=== PATIENT | male | born 1950 | race Caucasian/White ===

== ENCOUNTER → 2020-06-14 14:47 | Outpatient (BNVA) | payer MEDICARE, OTHER, SELFPAY | PROVIDERS: PCP Internal Medicine; Visit Provider Internal Medicine Cardiovascular Disease | DX: I25.10 Atherosclerotic heart disease of native coronary artery without angina pectoris (principal); I10 Essential (primary) hypertension; E78.5 Hyperlipidemia, unspecified | CPT/HCPCS: 99212 ==

== ENCOUNTER → 2021-06-16 12:55 | Outpatient (BNVA) | payer MEDICARE, OTHER, SELFPAY | PROVIDERS: PCP Internal Medicine; Visit Provider Internal Medicine Cardiovascular Disease | DX: I25.10 Atherosclerotic heart disease of native coronary artery without angina pectoris (principal); I10 Essential (primary) hypertension | CPT/HCPCS: 93005; 99212 ==

== ENCOUNTER → 2022-06-19 12:23 | Outpatient (BNVA) | payer MEDICARE, OTHER, SELFPAY | PROVIDERS: PCP Internal Medicine; Visit Provider Internal Medicine Cardiovascular Disease | DX: I25.10 Atherosclerotic heart disease of native coronary artery without angina pectoris (principal); I10 Essential (primary) hypertension | CPT/HCPCS: 93005; 99212 ==

== ENCOUNTER 2022-07-14 09:57 | Outpatient (REF) | payer MEDICARE, OTHER, SELFPAY ==
[2022-07-14 11:14] LABS: Cholesterol 158 mg/dL; HDL Cholesterol 57 mg/dL; LDL Cholesterol Calculated 82 mg/dl; Triglycerides 96 mg/dL
[2022-07-17 16:29] LABS: CRP High Sensitivity 0.9 mg/L
== END 2022-07-14 09:58 | disposition home or self-care (01) ==
LOC: HO.LAB 09:57
PROVIDERS: PCP Family Medicine; Visit Provider Internal Medicine Cardiovascular Disease
DX: E78.5 Hyperlipidemia, unspecified (principal); I25.10 Atherosclerotic heart disease of native coronary artery without angina pectoris
CPT/HCPCS: 36415; 80061; 86141

== ENCOUNTER 2023-06-19 12:16 | Outpatient (AMB) | payer MEDICARE, OTHER, SELFPAY ==
--- NOTE | 2023-06-19 12:35 | A.OFFVIS_ITS ---
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 Required: No Financial Secretary: Financial Secretary Present Accompanied by: Spouse Allergies Tetracyclines [TETRACYCLINES] Allergy (Intermediate, Unverified 01/08/20 17:25) BLISTERS pravastatin [PRAVASTATIN] Allergy (Unknown, Unverified 01/08/20 17:25) UNKNOWN tetracycline Allergy (Unknown, Verified 12/11/19 00:00) joint px Medication List - Last Reconciled 06/19/23 by Yannick Kline MD amlodipine 2.5 mg PO DAILY aspirin 81 mg PO DAILY atorvastatin 80 mg PO DAILY bupropion HCl 450 mg PO DAILY ezetimibe 10 mg PO DAILY mupirocin 2% topical nitroglycerin 0.4 mg sublingual Q5M PRN HPI HPI Comments History of Present Illness Details Perry comes for follow-up of his coronary artery disease. Maintain high level of activity. Denies any exertional chest pain or shortness of breath. Takes all his medications regularly. Last LDL at 64 mg/dL. No blood pressure issues. No heart failure symptoms. No prolonged palpitations irregular heartbeat PFSH Medical History Hyperlipidemia HTN (hypertension) CAD (coronary artery disease) Surgical History Hx of hernia repair Hx of CABG Hx of cardiac cath Family History Father No problems noted. Mother No problems noted. Review of Systems Const Denies chills, Denies fatigue, Denies fever(s), Denies frequent falls, Denies weakness, Denies weight gain and Denies weight loss ENT Denies dizziness Card Denies chest pain, Denies leg edema, Denies lightheadedness, Denies palpitations, Denies dyspnea, Denies dyspnea on exertion, Denies orthopnea and Denies other (loss of consciousness) Resp Denies cough, Denies dyspnea and Denies dyspnea on exertion GI Denies hematochezia and Denies change in stool character Musc Denies abnormal gait, Denies muscle weakness, Denies numbness, Denies radiating pain into limb and Denies tingling Neuro Denies abnormal gait, Denies dizziness, Denies frequent falls, Denies numbness, Denies tingling and Denies weakness Endo Denies fatigue and Denies palpitations Physical Exam Vital Signs: Last Vital Signs Pulse 91 06/19/23 12:36 BP 120/70 06/19/23 12:36 BMI result Body Mass Index 28.2 Const General: cooperative, comfortable, no acute distress, alert and awake Nutritional Appearance: overweight Orientation/consciousness: patient oriented x3 Limitations: no limitations Neck Neck: Yes no meningeal signs and Yes trachea midline Carotids: no bruits Chest Chest palpation & inspection: normal inspection of the chest and other (Well- healed sternotomy scar) Resp Effort & Inspection: normal respiratory effort Auscultation: clear to auscultation bilaterally Cardio Jugular venous distension: no JVD Palpation: normal PMI Rate: regular rate Rhythm: regular rhythm Heart sounds: S1 normal heart sound present and S2 normal heart sound present Skin General skin exam: no rashes or lesions noted Neuro General: patient oriented x3, no meningeal signs and no focal motor deficits Extrem General: Yes no clubbing, cyanosis or edema Office Procedures EKG Details: EKG shows normal sinus rhythm with normal EKG [id number], Complete Assessment & Plan Assessment & Plan (1) CAD (coronary artery disease): Code(s): I25.10 - Atherosclerotic heart disease of [place] coronary artery without angina pectoris Plan: Coronary artery disease status post three-vessel coronary artery bypass grafting for acute coronary syndrome. Currently symptom free. Doing well. Will check for venous graft patency at 5 year anniversary.Continue otherwise aggressive medical therapy. Continue low-dose aspirin therapy for life. Continue high- intensity statin therapy. LDL is well optimized encouraged to continue to participate in physical activity as tolerated. Advised to call me with any (2) HTN (hypertension): Code(s): I10 - Essential (primary) hypertension Plan: Hypertension which is currently well controlled on low-dose amlodipine therapy. Advised to monitor blood pressure at home maintain a log. Goal blood pressure less than 130/84. Low-salt diet was discussed. Advised to call me with any changes in his blood pressure readings. Continue maintain heart healthy lifestyle. Follow up in the clinic in 1 year's time, sooner p.r.n.. Thank you for allowing me to partake in his care Orders: Orders NM cardiolite stress test 10 Months I25.10 - Atherosclerotic heart disease of [place] coronary artery without angina pectoris, R07.9 - Chest pain, unspecified CA echo transthoracic complete 10 Months I25.10 - Atherosclerotic heart disease of [place] coronary artery without angina pectoris CA stress test 10 Months I25.10 - Atherosclerotic heart disease of [place] coronary artery without angina pectoris Coding Level of Care Code Est Pt Level 4 (11627) Diagnoses CAD (coronary artery disease) I25.10 HTN (hypertension) I10 CPT Codes EKG - CPT: 39986-Iyncmmkrztigzfodg, Complete ([id number])
[2023-06-19 12:36] VITALS: BP 120/70; PULSE 91; BMI 28.2
== END 2023-06-19 13:03 | disposition home or self-care (01) ==
PROVIDERS: Visit Provider Internal Medicine Cardiovascular Disease
DX: I25.10 Atherosclerotic heart disease of native coronary artery without angina pectoris (principal); I10 Essential (primary) hypertension
CPT/HCPCS: 93010; 99214

== ENCOUNTER → 2023-06-19 12:16 | Outpatient (BNVA) | payer MEDICARE, OTHER, SELFPAY | PROVIDERS: Visit Provider Internal Medicine Cardiovascular Disease | DX: I25.10 Atherosclerotic heart disease of native coronary artery without angina pectoris (principal); I10 Essential (primary) hypertension | CPT/HCPCS: 93005; 99212 ==

== ENCOUNTER → 2024-04-07 10:50 | Outpatient (REF) | payer MEDICARE, OTHER, SELFPAY ==
--- NOTE | 2024-04-07 10:56 | CA_ITS ---
Transthoracic Echocardiogram Patient (Last, First, Middle): Perry Castro N Gender: Male Date of : 1950 Age: 74 Procedure Date: 04/07/2024 Procedure Type: Transthoracic Echocardiogram Location: OP Height: 172.72 cm Weight: 86.18 kg BSA: 2.00 m2 Heart Rate: bpm BP: 116 / 66 mmHg Maxillofacial Prosthodontist: Referring MD: Yannick Kline MD Symptoms: I25.10 - Atherosclerotic heart disease of [place] coronary artery without... Study Quality: Fair/Definity ECG Rhythm: Sinus Conclusions: - The left ventricular systolic function is normal. The visually estimated ejection fraction is between 60-65%. - Possible mid inferolateral hypokinesis. - No obvious valvular pathology seen on this study. Findings Procedure Information Contrast agent, definity, is being given per protocol without apparent complications. Left Ventricle Normal left ventricular cavity size. The left ventricular systolic function is normal. The visually estimated ejection fraction is between 60-65%. There is paradoxical septal motion consistent with post-operative status. Diastolic function is normal for age. There is moderate septal asymmetric hypertrophy. Difficult to assess wall motion even with contrast use. Possible mid inferolateral hypokinesis. Right Ventricle Normal right ventricular cavity size and systolic function. Atria Both atria are normal in size. Aortic Valve There is a normal trileaflet aortic valve. There is no aortic valve stenosis. There is no aortic valve regurgitation. Mitral Valve The mitral valve appears normal. There is trace mitral valve regurgitation. There is no mitral valve stenosis. Pulmonic Valve The pulmonic valve is likely normal. Tricuspid Valve There is trace tricuspid valve regurgitation. Tricuspid regurgitation envelope is inadequate for calculation of right ventricular systolic pressure. Great Vessels The asc aorta is normal in size. Venous The inferior vena cava is normal in size and collapses greater than 50% with inspiration. Pericardium/Pleural There is no evidence of pericardial effusion. Prior Study Comparison No significant change compared to prior study dated: 01/21/2019. Grossly similar; but prior study quality limited and also non-contrast and hence difficult to compare. Recommendations, Care & Conclusions No obvious valvular pathology seen on this study. Measurements 2D Linear Measurements IVSd: 1.48 0.6-0.9/0.6-1.0 cm LVIDd: 3.33 3.9-5.3/4.2-5.9 cm LVIDd Index: 1.67 2.4-3.2/2.2-3.1 cm/m2 LVIDs: 1.96 2.0-3.6 cm LVPWd: 1.41 0.7-1.1 cm Ao Root: 2.60 2.1-3.5 cm LA Diam: 3.90 2.7-3.8/3.0-4.0 cm LAIDs Index: 1.95 1.5-2.3 cm/m2 LV Mass: 211.86 67-162/88-224 g LV Mass Index: 105.93 43-95/49-115 g/m2 LVOT Diam: 2.30 3.0+(-)1.3 cm 2D Systolic Function EF 4C: 66.80 >55% EF 2C: 67.90 >55% EF BiP: 69.80 >55% Mitral Valve MV Pk E: 0.49 MV PK A: 0.68 MV Decel Time: 115.00 E/A: 0.70 E'Lateral: 8.05 E'Medial: 5.22 E/E' Med: 9.40 E/E' Lat: 6.10 PHT: 34.00 MVA PHT: 6.47 Decel [place]: 4.30 Aortic Valve AoV Pk [place]: 0.83 AoV Mn [place]: 0.58 AoV VTI: 0.17 AoV Pk Grad: 3.00 Aov Mn Grad: 2.00 JUAN LUIS Cont.VTI: 3.52 LVOT LVOT Pk Nicanor: 0.69 LVOT Mn [place]: 0.48 LVOT VTI: 0.14 LVOT Pk Grad: 2.00 LVOT Mn Grad: 1.00 LVOT Diam: 2.30 LVOT Area: 4.15 Diastolic Function MV Pk E: 0.49 MV Pk A: 0.68 E/A: 0.70 E'Medial: 5.22 E/E' Med: 9.40 E' Laterial: 8.05 E/E' Lat: 6.10 Right Ventricle TAPSE (mm): 19.00 TVS' Nicanor: 10.00 Tricuspid Valve TR Pk Nicanor: 1.98 TR Pk Grad: 16.00 RA Press: 3.00 Great Vessels Aorta Ao Root-2D: 2.60 2.0-3.7 cm Ao Asc: 3.60 2.1-3.4 cm Pulmonary Valve PV Pk Nicanor: 1.35 Peak PV Grad: 7.00 Updated in Other Vendor System with Status of Final Odell Cooley MD electronically signed on 04/07/2024 12:43:49 PM with status of Final
== END ==
LOC: HO.CARD 10:50
PROVIDERS: PCP Family Medicine; Visit Provider Internal Medicine Cardiovascular Disease
DX: I25.10 Atherosclerotic heart disease of native coronary artery without angina pectoris (principal)
CPT/HCPCS: 93306; Q9957

== ENCOUNTER → 2024-04-07 10:56 | Outpatient (BNV) | payer MEDICARE, OTHER, SELFPAY | PROVIDERS: PCP Family Medicine; Visit Provider Internal Medicine | DX: I42.2 Other hypertrophic cardiomyopathy (principal); I25.10 Atherosclerotic heart disease of native coronary artery without angina pectoris | CPT/HCPCS: 93306 ==

== ENCOUNTER → 2024-04-11 09:46 | Outpatient (REF) | payer MEDICARE, OTHER, SELFPAY ==
--- NOTE | ~2024-04-11 | NM_ITS ---
EXERCISE MYOCARDIAL PERFUSION STUDY INDICATION: Coronary disease TECHNIQUE: The patient was brought in for an exercise perfusion study on 04/11/2024. Patient performed exercise as per Mikal protocol and was injected 30 mCi of sestamibi once target heart rate was achieved. Images were obtained using the SPECT gamma camera interlaced with the gating device. Images were obtained in supine position. Resting perfusion study was performed on 04/14/2024. Patient was administered 30 mCi of sestamibi intravenously at rest. Images were then obtained in supine position. Total DLP 143 mGy-cm. Images were processed with the software and compared side to side in short axis, horizontal long axis and vertical long axis views. FINDINGS: Raw aquisition reviewed. Arms by the patient's side. The stress perfusion study showed no significant perfusion defects. Both uncorrected well as CT attenuation corrected images were reviewed. The gated study shows normal LV systolic function with calculated LVEF of 58%. LV cavity is normal in size. The gated study shows normal wall thickening and contraction of segments. Resting study shows no significant perfusion defects. Gating at rest reveals normal wall motion with ejection fraction at 63%. The findings are consistent with no clearly reversible or fixed perfusion defects. NM/NM cardiolite stress test IMPRESSION: 1. Myocardial perfusion imaging study shows normal myocardial perfusion. 2. Gated LVEF is 58% during stress and 63% during rest. 3. Transient ischemic dilatation not present. EKG component of the test reported separately. Electronically signed by: Odell Cooley MD 04/15/2024 09:02 AM [facility]
--- NOTE | 2024-04-11 09:50 | CA_ITS ---
Acquisition Time: 2024-04-11 10:52:45 Total Exercise Time: 00:06:45 Test Indications: CAD, HTN Medications: SEE H Protocol: ELBA Max HR: 130 BPM 89% of Pred: 145 BPM Max BP: 194/060 mmHG Max Work Load: 8.1 METS Exercise Stress Test with exercise 6 min 45 secs of Elba Protocol, achieving 86% MPHR, without any anginal symptoms, with frequent PVCs, with normotensive response to exercise. With upsloping ST depression noted inferiorly, that returned to baseline slowly. Nuclear images pending. Test reviewed with Dr. Cooley. Referred By: Yannick Kline Overread By: ANURAG MERINO
== END ==
LOC: HO.CARD 09:46
PROVIDERS: Visit Provider Internal Medicine Cardiovascular Disease
DX: R07.9 Chest pain, unspecified (principal); I25.10 Atherosclerotic heart disease of native coronary artery without angina pectoris
CPT/HCPCS: 78452; 93017; A9500

== ENCOUNTER → 2024-04-11 09:50 | Outpatient (BNV) | payer MEDICARE, OTHER, SELFPAY | PROVIDERS: Visit Provider Nurse Practitioner Family | DX: I25.10 Atherosclerotic heart disease of native coronary artery without angina pectoris (principal) | CPT/HCPCS: 78452; 93016; 93018 ==

== ENCOUNTER 2024-07-28 12:46 | Outpatient (AMB) | payer MEDICARE, OTHER, SELFPAY ==
--- NOTE | 2024-07-28 13:09 | A.OFFVIS_ITS ---
Vital Signs 07/28/24 13:10 Height 5 ft 8 in Weight 185 lb 3.013 oz BMI 28.2 BP 120/72 Blood Pressure Location Lt brachial Position Sitting Pulse 89 Intake Visit Reasons: 1 yr f/up mibi./echo Intake Note: 1 year follow-up with ekg had mibi and echo c/o fatigue Abnormal Psychology Teacher Required: No Allergies Tetracyclines [TETRACYCLINES] Allergy (Intermediate, Unverified 01/08/20 17:25) BLISTERS pravastatin [PRAVASTATIN] Allergy (Unknown, Unverified 01/08/20 17:) UNKNOWN tetracycline Allergy (Unknown, Verified 12/11/19 00:00) joint px Medication List - Last Reconciled 07/28/24 by Yannick Kline MD amlodipine 2.5 mg PO DAILY aspirin 81 mg PO DAILY atorvastatin 80 mg PO DAILY bupropion HCl XL 450 mg PO DAILY ezetimibe 10 mg PO DAILY mupirocin 2% topical nitroglycerin 0.4 mg sublingual Q5M PRN HPI Comments Details: Perry comes for follow-up. Overall he has been doing well. He underwent a myocardial perfusion imaging in March which was within normal limits with normal LV systolic function on echocardiogram. He continues to exercise at his current pace and has no exertional chest pain or shortness of breath. Overall feels energetic although he said he has not been exercising much and has some balance issues. Denies any orthopnea, PND, leg edema. Denies any prolonged palpitation or syncope. Occasionally gets orthostatic lightheadedness when he gets up quickly. [facility] Medical History Hyperlipidemia HTN (hypertension) CAD (coronary artery disease) Surgical History Hx of hernia repair Hx of CABG Hx of cardiac cath Family History Father No problems noted. Mother No problems noted. Review of Systems Const Denies chills, Denies fatigue, Denies fever(s), Denies frequent falls, Denies weakness, Denies weight gain and Denies weight loss ENT Denies dizziness Card Denies chest pain, Denies leg edema, Denies lightheadedness, Denies palpita tions, Denies dyspnea, Denies dyspnea on exertion, Denies orthopnea and Denies other (loss of consciousness) Resp Denies cough, Denies dyspnea and Denies dyspnea on exertion GI Denies hematochezia and Denies change in stool character Musc Denies abnormal gait, Denies muscle weakness, Denies numbness, Denies radiating pain into limb and Denies tingling Neuro Denies abnormal gait, Denies dizziness, Denies frequent falls, Denies numbness, Denies tingling and Denies weakness Endo Denies fatigue and Denies palpitations Physical Exam Vital Signs: Last Vital Signs Pulse 89 07/28/24 13:10 BP 120/72 07/28/24 13:10 BMI result Body Mass Index 28.2 Const General: cooperative, comfortable, no acute distress, alert and awake Nutritional Appearance: overweight Orientation/consciousness: patient oriented x3 Limitations: no limitations Neck Neck: Yes no meningeal signs and Yes trachea midline Carotids: no bruits Chest Chest palpation & inspection: normal inspection of the chest and other (Well- healed sternotomy scar) Resp Effort & Inspection: normal respiratory effort Auscultation: clear to auscultation bilaterally Cardio Jugular venous distension: no JVD Palpation: normal PMI Rate: regular rate Rhythm: regular rhythm Heart sounds: S1 normal heart sound present and S2 normal heart sound present Skin General skin exam: no rashes or lesions noted Neuro General: patient oriented x3, no meningeal signs and no focal motor deficits Extrem General: Yes no clubbing, cyanosis or edema Office Procedures EKG Details: EKG shows normal sinus rhythm with normal EKG [id number], Complete Assessment & Plan Assessment & Plan (1) CAD (coronary artery disease): Code(s): I25.10 - Atherosclerotic heart disease of [place] coronary artery without angina pectoris Category: Medical Plan: Coronary artery disease status post surgical revascularization many years ago with recent myocardial perfusion imaging within normal limits. He was no concerning symptoms. Usually overall suggestive of good prognosis. Recommend to continue lifelong aspirin therapy. Continue high-intensity statin therapy along with ezetimibe therapy. Advise at least annual lipid check. Will obtain labs from your office. Continue aggressive blood pressure control. Importance of regular physical exercise off all forms was discussed with him. (2) HTN (hypertension): Code(s): I10 - Essential (primary) hypertension Category: Medical Plan: Hypertension which is currently well optimized on current low-dose amlodipine therapy. Does have some symptoms of orthostasis. Advised to maintain adequate hydration. Advise orthostatic precautions. Importance of good blood pressure control was discussed. Low-salt diet was discussed. Advised to monitor blood pressure at home maintain a log. Will follow up in the clinic in 1 year's time, sooner p.r.n.. Thank you for allowing me to partake in his care Medications: Refilled nitroglycerin do not exceed 3 doses per episode 0.4 mg sublingual Q5M PRN 25 tabs 1RF chest pain Coding Level of Care Code Est Pt Level 4 (33488) Complex EM visit Add On G2211 Diagnoses CAD (coronary artery disease) I25.10 HTN (hypertension) I10 CPT Codes EKG - CPT: 94592-[id number], Complete ([id number])
[2024-07-28 13:10] VITALS: BP 120/72; PULSE 89; BMI 28.2
--- OUTSIDE RECORDS SUMMARY | 2024-07-28 15:06 | XMS_ITS | Clinical Summary ---
Author Organization [facility] it Address [address] [place] [address] Care Team Providers Care Clinical Rn Name Role Phone Unavailable Primary Care Provider Unavailabl e Social History Tobacco Use Types Packs/Day Years Used Date Smoking Tobacco: Never Assessed Sex and Gender Information Value Date Recorded Sex Assigned at Not on file Legal Sex Male 2:05 AM EST Gender Identity Not on file Sexual Orientation Not on file Plan of Treatment Health Maintenance Due Date Last Done Comments DTaP,Tdap,and Td Vaccines (1 - Tdap) 1968 Pneumococcal Vaccine: 50+ Ye ars (1 of 1 - PCV) 1999 Zoster Vaccines (1 of 2) 1999 Abdominal Aortic Aneurysm (A AA) Screen 11/13/2023 Cholesterol Screening (Lipid Panel) 11/13/2023 Colorectal Cancer Screening: Colonoscopy 11/13/2023 Depression Screening 11/13/2023 Falls Risk Assessment 11/13/2023 Hepatitis C Screening 11/13/2023 Social Influencers of Health Screening 11/13/2023 COVID-19 Vaccine ( - 2023-2 5 season) 2023 RSV Immunization Adult Patie nts (1 - 1-dose 75+ series) 2024 Influenza Vaccine (Season Ended) 2024 HIB Vaccines Aged Out No longer eligi ble based on patient's age to complete this topic HPV Vaccines Aged Out No longer eligi ble based on patient's age to complete this topic Hepatitis A Vaccines Aged Out No long er eligible based on patient's age to complete this topic Hepatitis B Vaccines Aged Out No long er eligible based on patient's age to complete this topic IPV Vaccines Aged Out No longer eligi ble based on patient's age to complete this topic MMR Vaccines Aged Out No longer eligi ble based on patient's age to complete this topic Meningococcal ACWY Vaccine Aged Out N o longer eligible based on patient's age to complete this topic Meningococcal B Vaccine Aged Out No l onger eligible based on patient's age to complete this topic RSV Immunization Patients Un amelia 20 months Aged Out No longer eligible b ased on patient's age to complete this topic Varicella Vaccines Aged Out No longer eligible based on patient's age to complete this topic
--- OUTSIDE RECORDS SUMMARY | 2024-07-28 15:06 | XMS_ITS | Data Portability ---
Author Organization [facility], Main Office Address [address] [facility] [address] [place] [phone] Care Team Providers Care Rapid Extractor Operator Name Role Phone JAMES FINCH Solar Installation Crew Supervisor [phone] [facility] Intake Worker AARON REECE Professional Fee Coder TUCKER ANSARI Psychologist [phone] DOLORES SIDDIQUI Hand Surgeon BRIGITTE BLOOM Body Corporate Manager DARWIN MCCONNELL Neurosurgeon MOE DOMINGUEZ Primary Care Provider [phone] Assessment Encounter Date Assessment Date Assessment LastModified by Organization Details LastModified Time 04/14/2023 04/14/2023 This service was provided using telemedicine. Patient consented to telephone visit Patient was located in the [facility]. Provider was located in the office. No other persons participated in the telemedicine visit except for the patient unless otherwise indicated here. {{}} Total time of visit was 9 minutes. madhu Not available 04/14/2023 09:33:31 04/24/2023 04/24/2023 This service was provided using telemedicine. Patient consented to video & audio visit Patient was located in the [facility]. Provider was located in the office. No other persons participated in the telemedicine visit except for the patient unless otherwise indicated here. {{}} Total time of visit was 15 minutes. [email or web address] Not available 04/24/2023 12:06:42 12/31/2023 12/31/2023 Plan and Workup Physical exam unremarkable, he passed get up and go test. Laboratory Tests: Will hold any lab test given there is an inciting factor. Imaging: Will hold neuro imaging as there is inciting factor. Referrals: Not indicated at this time. Home Safety Evaluation: Arrange for a home safety evaluation to identify and mitigate fall risks in the patient's living environment. -Advised to hold Flexeril today, can 0.5 to 0.25 at bedtime only as needed. -Add lyrica as needed for pain prn, for AM and Lunch time. -Use otc lidocaine or biofreeze. -Advised to limit naproxen use and use only as needed. Can use tylenol per otc instruction. -Advised PT. -Ed precautions discussed. -RTC in 3 weeks for a follow. [email or web address] Not available 12/31/2023 09:35:18 Plan of Treatment Reminders Order Date Submit Date Provider Last Modified By Organization Details Last Modified Time Details Appointments FOLLOW UP 30MIN 2024 02:00P Moses Dominguez MD Not available Not available Not available Lab HbA1c (hemog lobin A1c), blood 2023 [facility], [address], [address], [place], [address], 02/27/2024 14:06:31 lipid panel, serum 2023 024 [facility] (Centralized Electronic Ordering - All Locations), Patient Can Go To The Location Of Their Choice, [id number] 02/27/2024 14:06:30 CBC w/ auto diff 2023 024 [facility], [address], [address], [place], [address], 02/27/2024 14:06:46 CMP, serum or plasma 2023 024 [facility] (Centralized Electronic Ordering - All Locations), Patient Can Go To The Location Of Their Choice, [id number] 02/27/2024 14:06:30 TSH, ultra- sensit eryn, serum 2023 024 [facility] (Centralized Electronic Ordering - All Locations), Patient Can Go To The Location Of Their Choice, [id number] 02/27/2024 14:06:31 magnes ium, serum or plasma 2023 024 [facility], [address], [address], [place], [place], [address], 02/27/2024 14:06:45 HbA1c (hemog lobin A1c), blood 2023 024 [facility], [address], [address], [place], [address], 05/16/2023 15:08:36 lipid panel, serum 2023 024 [facility], [address], [address], [place], [address], 05/16/2023 17:06:21 Referral physic al therap ist referr al - Please see for LBP 2023 024 [facility] Not available 01/24/2024 15:19:02 hand surgeo n referr al 2023 024 [email or web address] [facility], [address], [facility] [address], [place], [address], 01/29/2024 13:40:08 physic al therap ist referr al 2023 024 [facility], [address] [place], [address], 01/28/2024 09:22:49 Procedures None record ed. Surgeries None record ed. Imaging None record ed. Medication Orders pregab wes 75 mg capsul e 2023 024 [facility] #[id number], [address] [place] [address], [address], 02/27/2024 13:36:47 cyclob enzapr ine 10 mg tablet 2023 024 [facility] #0977, [address] [place], [address], 12/31/2023 09:07:03 naprox en 500 mg tablet ,delay ed releas e 2023 [email or web address] [facility]armacy #[id number], [address] [place] [address], [address], 02/27/2024 13:35:37 flutic asone propio chyna 50 mcg/ac tuatio n nasal spray, suspen kem 2023 024 [facility] #0957, [address] [place] [address], [address], 12/11/2023 09:57:39 mirtaz apine 7.5 mg tablet 2023 024 [facility]0957, [address] [place] [address], [address], 02/27/2024 13:36:29 Paxlov id 300 mg (150 mg x 2)-100 mg tablet s in a dose pack 2022 024 [facility] #0957, [address] [place] [address], [address], 04/24/2023 11:53:58 benzon atate 100 mg capsul e 2022 [email or web address] [facility] #0957, [address] [place] [address], [address], 04/24/2023 11:53:29 Patient TargetsNo targets recorded. Patient Instructions Encounter Date Encounter Id Patient Instructions Last Modified By Organization Details Last Modified Time 04/14/2023 [id number] 10 things to do when you have covid-19 [email or web address] Not available 04/14/2023 09:35:41 10 things to do when you have covid-19 [email or web address] Not available 04/14/2023 09:35:41 cough: care instructions madhu Not available 04/14/2023 09:35:41 12/11/2023 [id number] low back pain: exercises [email or web address] Not available 12/11/2023 10:07:55 getting back to normal after low back pain: care instructions [email or web address] Not available 12/11/2023 10:07:55 To call or return for worsening or concerns [email or web address] Not available 12/11/2023 09:58:13 02/27/2024 [id number] advance care planning: care instructions [email or web address] Not available 02/27/2024 14:06:25 well visit, over 65: care instructions ckokar Not available 02/27/2024 14:06:25 preventing falls: care instructions ckokar Not available 02/27/2024 14:06:25 medicare preventive services guide (male 74 rs and under) ckokar Not available 02/27/2024 14:06:25 high cholesterol: care instructions ckokar Not available 02/27/2024 14:06:25 Reason for Referral Physical Therapist Referral for At increased risk for falls Referring Physician: Moe Dominguez [facility], Encounter Date: 12/31/2023 Physical Therapist Referral for Lumbar radiculopathy Please see for LBP Referring Physician: Moe Dominguez [facility], Encounter Date: 12/31/2023 Hand Surgeon Referral for Tr igger finger of left hand Referring Physician: Moe Domniguez [facility], Encounter Date: 12/31/2023 Results Created Date Observation Date Name Description Value Unit Range Abnormal Flag Note LastModifiedBy Organization Detail LastModifiedTime 05/16/19 24 05/16/2023 HEMOG LOBIN A1C hemoglobin A1C 5.7 % (4.0-5 .6) high MONIT ORING : In known diabe tic patie nts, hemog lobin A1c targe ts shoul d be discu ssed with healt h care provi amelia. DIAGN OSTIC USE: The Ameri can Diabe bora Assoc iatio n (ADA) and the World Healt h Organ izati on (WHO) recom mend the use of HbA1c to diagn ose diabe bora using a thres hold of 6.5%. Patie nts who have an HbA1c betwe en 5.7% and 6.4% are consi dered at incre ased risk for devel oping diabe bora in the brandee ROSE ON: False ly low HbA1c resul ts may be obser silvio in patie nts with hemol ytic anemi a, homoz ygous forms of abnor mal hemog lobin (e.g. SS, CC, SC), pregn salty, recen t blood loss or hemog lobin F great er than 7%. Fruct osami ne may be used as an alter chyna test in these cases . REFER ENCE: ADA: Stand ards of Medic al Care in Diabe b[place] 2019, The Journ al of Clini jackie and Appli ed Resea rc and Educa tion Volum e 43, Suppl ement 1 Not Available [facility] (Centralized Electronic Ordering - All Locations) Patient Can Go To The Location Of Their Choice, 05/16/2023 15:08:36 05/16/1905/16/2023 LIPID PANEL cholesterol, total 145 mg/dL (<200) Not Available [facility] (Centralized Electronic Ordering - All Locations) Patient Can Go To The Location Of Their Choice, 05/16/2023 17:06:21 05/16/1905/16/2023 LIPID PANEL triglyceride 77 mg/dL (<150) Not Available [facility] (Centralized [facility] Ordering - All Locations) Patient Can Go To The Location Of Their Choice, 05/16/2023 17:06:21 05/16/1905/16/2023 LIPID PANEL HDL chol 66 mg/dL (>39) Not Available [facility] (Centralized Electronic Ordering - All Locations) Patient Can Go To The Location Of Their Choice, 05/16/2023 17:06:21 05/16/1905/16/2023 LIPID PANEL LDL cholesterol, calculated 64 mg/dL (0-130 ) Not Available [facility] (Centralized Electronic Ordering - All Locations) Patient Can Go To The Location Of Their Choice, 05/16/2023 17:06:21 05/16/1905/16/2023 LIPID PANEL non HDL cholesterol (calc) 79 mg/dL (<160) Not Available [facility] (Centralized Electronic Ordering - All Locations) Patient Can Go To The Location Of Their Choice, 05/16/2023 17:06:21 Result Notes None recorded. Problems Name Problem SNOMED Code Status Onset Date Resolution Date Notes Provider Name and Address Organization Details Recorded Time Major depressi ve disorder 831331427 Completed 01/22/2019 Removal Reason: DX changed Courtney poole [place] [facility] 9 14:20:32 Radiolog y result abnormal 372450657 Completed 201112/01/2013 RECORDED 08/29/19 12 1:31PM BY MARIANO SAINZ ON/ADDEN DUM Not Available [facility] 4 05:25:32 Adult health examinat ion Completed 201312/01/2013 RECORDED 05/19/19 14 8:57AM BY LAUREL JAY MA, ANNOTATI ON/ADDEN DUM Not Available [facility] 4 05:25:32 Bicipita l tenosyno vitis 11943322 Completed 201112/01/2013 RESOLVED DATE: 08/29/19 12; RECORDED 08/29/19 12 1:33PM BY MARIANO SAINZ ON/ADDEN DUM Not Available [facility] 4 05:25:32 Pneumoni a 704984742 Completed 201112/01/2013 RESOLVED DATE: 08/29/19 12; RECORDED 08/29/19 12 1:29PM BY MARIANO SAINZ ON/ADDEN DUM Not Available [facility] 4 05:25:32 Chest pain 27534651 Completed 201112/01/2013 RESOLVED DATE: 08/29/19 12; RECORDED 08/29/19 12 1:31PM BY MARIANO SAINZ ON/ADDEN DUM Not Available [facility] 4 05:25:32 Chronic sinusiti s 31353098 Completed 201212/01/2013 RECORDED 01/21/20 13 9:45AM BY LAUREL JAY MA, ANNOTATI ON/ADDEN DUM Not Available [facility] 4 05:25:32 Screenin g for malignan t neoplasm of colon Completed 201212/01/2013 RECORDED 06/17/19 13 2:49PM BY LAUREL JAY MA, GIANNAATI ON/ADDEN DUM Not Available [facility] 4 05:25:32 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 Completed 201212/01/2013 RECORDED 06/17/19 13 2:48PM BY LAUREL JAY MA, ANNOTATI ON/ADDEN DUM Not Available [facility] 4 05:25:32 Depressi ve disorder 85611969 Completed 201012/01/2013 RECORDED 10/12/19 11 10:46AM BY LAUREL JAY MA, MARIANO ON/ADDEN DUM Not Available [facility] 4 05:25:32 Elevated blood-pr essure reading without diagnosi s of hyperten kem 208882242 Completed 201312/01/2013 RECORDED 09/02/19 14 11:30AM BY LAUREL JAY MA, MARIANO ON/ADDEN DUM Not Available [facility] 4 05:25:32 Enthesop athy of knee 29171461 Completed 201112/01/2013 RESOLVED DATE: 08/29/19 12; RECORDED 08/29/19 12 1:29PM BY [place] MARIE, MARIANO ON/ADDEN DUM Not Available [facility] 4 05:25:32 Follow-u p encounte r Completed 201312/01/2013 RECORDED 09/02/19 14 11:42AM BY LAUREL JAY MA, ANNOTATI ON/ADDEN DUM Not Available [facility] 4 05:25:32 Malaise and fatigue 178494909 Completed 201212/01/2013 RECORDED 01/21/20 13 9:45AM BY LAUREL JAY MA, ANNOTCHALINO ON/ADDEN DUM Not Available [facility] 4 05:25:32 Hernia of abdomina l cavity 85655204 Completed 201112/01/2013 RESOLVED DATE: 08/29/19 12; RECORDED 02/27/20 12 11:51AM BY LAUREL JAY MA, ANNOTATI ON/ADDEN DUM Not Available [facility] 4 05:25:32 Immuniza tion refused Completed 05/10/2016 Jesús Fraga MD [address], [place], [address] , [facility] 7 11:18:23 Amnesia 02487539 Completed 201112/01/2013 RECORDED 02/27/20 12 11:51AM BY LAUREL JAY MA, ANNOTATI ON/ADDEN DUM Not Available [facility] 4 05:25:32 Mixed hyperlip idemia 495772673 Completed 201212/01/2013 RECORDED 05/20/19 13 1:32AM BY LAUREL JAY MA, ANNOTATI ON/ADDEN DUM Not Available [facility] 4 05:25:32 Active or passive immuniza tion Completed 201012/01/2013 RECORDED 04/11/20 11 3:21PM BY JESÚS FRAGA MD, OFFICE VISIT Not Available [facility] 4 05:25:32 Influenz a vaccine needed 62544893272 06 Completed 200912/01/2013 RECORDED 04/08/20 10 1:04PM BY LAUREL JAY MA, OFFICE VISIT Not Available [facility] 4 05:25:32 Administ ration of bacteria l and viral vaccine Completed 201012/01/2013 RECORDED 04/11/20 11 3:21PM BY JESÚS FRAGA MD, OFFICE VISIT Not Available [facility] 4 05:25:32 Abnormal findings on diagnost ic imaging of lung 088059819 Completed 201112/01/2013 RECORDED 08/29/19 12 1:32PM BY [place] MARIE, ANNOTATI ON/ADDEN DUM Not Available [facility] 4 05:25:32 Pain in limb 87899108 Completed 201112/01/2013 RESOLVED DATE: 08/29/19 12; RECORDED 08/29/19 12 1:30PM BY [place] MARIE, ANNOTATI ON/ADDEN DUM Not Available [facility] 4 05:25:32 Dizzines s and giddines s 554066392 Completed 201112/01/2013 STORY: POSITION AL VERTIGO, LIMITED TO EXTENSIO N AT THE NECK.; RECORDED 02/27/20 12 11:51AM BY LAUREL JAY MA, ANNOTATI ON/ADDEN DUM Not Available [facility] 4 05:25:33 Low back pain 393494133 Completed 11/04/2021 Moe Dominguez MD [address], [place], [address] , [facility] 2 13:17:31 Lumbar radiculo eliceo 792513416 Completed 11/21/2016 Moe Dominguez MD [address], [place], [address] , [facility] 4 13:56:37 Insomnia 553263231 Active Not Available [facility] 3 11:12:50 Spinal stenosis of lumbar region 99151685 Active Not Available [facility] 3 11:12:50 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 819354784 Completed 11/04/2021 Moe Dominguez MD [address], [address] , [facility] 2 13:15:28 Greater trochant edwige pain syndrome 8936962 Completed 11/04/2021 Moe Dominguez MD [address], [address] , [facility] 2 13:16:39 Fatigue 37677320 Completed 11/04/2021 Moe Dominguez MD [address], [address] , [facility] 2 13:16:46 Bursitis of shoulder 146451105 Completed 02/27/2024 Moe Dominguez MD [address], [place], [address] , [facility] 4 13:55:24 Actinic keratosi s 933002058 Active 2016 Not Available [facility] 3 11:12:50 Alcohol dependen ce 74157604 Completed 201805/03/2022 Moe Dominguez MD [address], [place], [address] , [facility] 3 07:35:33 Psychoph ysiologi c insomnia 392117562 Active 2018 Not Available [facility] 3 11:12:51 Single major depressi ve episode Completed 201801/02/2023 Moe Dominguez MD [address], [place], [address] , [facility] 3 11:45:27 Multi vessel coronary artery disease 255459395 Active now s/p CABG x3 - LAD, dx, OM Not Available [facility] 3 11:12:51 Left ventricu lar systolic dysfunct ion 886877631 Active 2018 Not Available [facility] 3 11:12:50 Tendinit is of hip 248830494 Completed 201811/04/2021 Moe Dominguez MD [address], [place], [address] , [facility] 2 13:17:05 History of myocardi al infarcti on 882189066 Active 2018 Not Available [facility] 3 11:12:51 Coronary artery bypass grafts x 3 Active 2018 LAD, diagonal , Om w/ greater saphenou s Not Available [facility] 3 11:12:50 Endoscop ic harvesti ng of saphenou s vein Active 2018 for CABG x 3 Not Available [facility] 3 11:12:51 Iron deficien cy anemia 65620163 Completed 201811/04/2021 Moe Dominguez MD [address] [facility] [address], [place], [address] , [facility] 2 13:16:53 Moderate recurren t major depressi on 24210195 Active 2019 Not Available [facility] 3 11:12:50 Pain of left hand 27603792812 9103 Completed 202011/04/2021 Moe Dominguez MD [address] [facility] [address], [place], [address] , [facility] 2 13:17:18 Primary erectile dysfunct ion 932791929 Active 2016 Not Available [facility] 3 11:12:51 Lumbar radiculo eliceo 870584182 Completed 202302/27/2024 Moe Dominguez MD [address] [facility] [address], [place], [address] , [facility] 4 13:56:37 Trigger finger of left hand 93764808289 317329 Completed 202302/27/2024 Moe Dominguez MD [address] [facility] [address], [place], [address] , [facility] 4 13:56:59 Radiolog y result abnormal 718339073 Completed 201111/04/2013 RECORDED 08/29/19 12 1:31PM BY MARIANO SAINZ ON/ADDEN DUM Not Available [facility] 4 14:09:59 Abnormal weight loss 139387356 Completed 05/10/2016 Jesús Fraga MD [address] [facility] [address], [place], [address] , [facility] 7 11:18:19 Disorder of joint of shoulder region 011658250 Completed 02/27/2024 Moe Dominguez MD [address] [facility] [address], [place], [address] , [facility] 4 13:55:30 Allergic rhinitis 31129294 Active Not Available [facility] 3 11:12:51 Adult health examinat ion Completed 201311/04/2013 RECORDED 05/19/19 14 8:57AM BY LAUREL JAY MA, ANNOTATI ON/ADDEN DUM Not Available [facility] 4 14:10:00 Bicipita l tenosyno vitis 74501070 Completed 201111/04/2013 RESOLVED DATE: 08/29/19 12; RECORDED 08/29/19 12 1:33PM BY MARIANO SAINZ ON/ADDEN DUM Not Available [facility] 4 14:10:00 Pneumoni a 894669247 Completed 201111/04/2013 RESOLVED DATE: 08/29/19 12; RECORDED 08/29/19 12 1:29PM BY MARIANO SAINZ ON/ADDEN DUM Not Available [facility] 4 14:10:00 Chest pain 89175861 Completed 201111/04/2013 RESOLVED DATE: 08/29/19 12; RECORDED 08/29/19 12 1:31PM BY GIANNA SAINZATI ON/ADDEN DUM Not Available [facility] 4 14:10:00 Chronic sinusiti s 77812920 Completed 201211/04/2013 RECORDED 01/21/20 13 9:45AM BY LAUREL JAY MA, GIANNAATI ON/ADDEN DUM Not Available [facility] 4 14:10:00 Screenin g for malignan t neoplasm of colon Completed 201211/04/2013 RECORDED 06/17/19 13 2:49PM BY LAUREL JAY MA, ANNOTATI ON/ADDEN DUM Not Available [facility] 4 14:10:00 Tietze's disease 66812742 Completed 201211/04/2013 RECORDED 06/17/19 13 2:48PM BY LAUREL JAY MA, ANNOTATI ON/ADDEN DUM Not Available [facility] 4 14:10:00 Cough 86004899 Completed 11/21/2016 [place], [place] - [facility] 7 10:56:10 Depressi ve disorder 87011758 Completed 201011/04/2013 RECORDED 10/12/19 11 10:46AM BY LAUREL JAY MA, ANNOTCHALINO ON/ADDEN DUM Not Available [facility] 4 14:10:00 Single major depressi ve episode Completed 11/17/2015 Moe Dominguez MD [address] [facility] [address], [facility] [place], [address] , [facility] 3 11:45:27 Elevated blood-pr essure reading without diagnosi s of hyperten kem 393360878 Completed 201311/04/2013 RECORDED 09/02/19 14 11:30AM BY LAUREL JAY MA, MARIANO ON/ADDEN DUM Not Available [facility] 4 14:10:01 Enthesop athy of knee 37104883 Completed 201111/04/2013 RESOLVED DATE: 08/29/19 12; RECORDED 08/29/19 12 1:29PM BY [place] MARIE, GIANNAATI ON/ADDEN DUM Not Available [facility] 4 14:10:01 Follow-u p encounte r Completed 201311/04/2013 RECORDED 09/02/19 14 11:42AM BY LAUREL JAY MA, MARIANO ON/ADDEN DUM Not Available [facility] 4 14:10:01 [facility] l hyperten kem 98452762 Active Not Available [facility] 3 11:12:51 Malaise and fatigue 744449249 Completed 201211/04/2013 RECORDED 01/21/20 13 9:45AM BY LAUREL JAY MA, ANNOTATI ON/ADDEN DUM Not Available [facility] 4 14:10:01 Hernia of abdomina l cavity 33634412 Completed 201111/04/2013 RESOLVED DATE: 08/29/19 12; RECORDED 02/27/20 12 11:51AM BY LAUREL JAY MA, ANNOTATI ON/ADDEN DUM Not Available [facility] 4 14:10:01 Hyperlip idemia 51375500 Active Not Available [facility] 3 11:12:51 Immuniza tion refused Completed 201311/05/2013 RECORDED 09/02/19 14 11:42AM BY LAUREL JAY MA, ANNOTATI ON/ADDEN DUM Jesús Fraga MD [address] [facility] [address], [place], [address] , [facility] 7 11:18:23 Amnesia 27246529 Completed 201111/04/2013 RECORDED 02/27/20 12 11:51AM BY LAUREL JAY MA, ANNOTATI ON/ADDEN DUM Not Available [facility] 4 14:10:01 Mixed hyperlip idemia 788767389 Completed 201211/04/2013 RECORDED 05/20/19 13 1:32AM BY LAUREL JAY MA, ANNOTATI ON/ADDEN DUM Not Available [facility] 4 14:10:01 Active or passive immuniza tion Completed 201011/04/2013 RECORDED 04/11/20 11 3:21PM BY JESÚS FRAGA MD, OFFICE VISIT Not Available [facility] 4 14:10:01 Influenz a vaccine needed 37178279142 06 Completed 200911/04/2013 RECORDED 04/08/20 10 1:04PM BY LAUREL JAY MA, OFFICE VISIT Not Available [facility] 4 14:10:01 Administ ration of bacteria l and viral vaccine Completed 201011/04/2013 RECORDED 04/11/20 11 3:21PM BY JESÚS FRAGA MD, OFFICE VISIT Not Available [facility] 4 14:10:02 Patient status finding 706233544 Completed 201311/05/2013 RECORDED 09/02/19 14 11:31AM BY LAUREL JAY MA, OFFICE VISIT [place], [facility] 6 13:02:42 Abnormal findings on diagnost ic imaging of lung 503776856 Completed 201111/04/2013 RECORDED 08/29/19 12 1:32PM BY MARIANO SAINZ ON/ADDEN DUM Not Available [facility] 4 14:10:02 Pain in limb 80492478 Completed 201111/04/2013 RESOLVED DATE: 08/29/19 12; RECORDED 08/29/19 12 1:30PM BY MARIANO SAINZ ON/ADDEN DUM Not Available [facility] 4 14:10:02 Enthesop athy of hip region 78934328 Completed 11/04/2021 Moe Dominguez MD [address], [facility] [place], [address] , [facility] 2 13:16:32 Dizzines s and giddines s 653185793 Completed 201111/04/2013 STORY: POSITION AL VERTIGO, LIMITED TO EXTENSIO N AT THE NECK.; RECORDED 02/27/20 12 11:51AM BY LAUREL JAY MA, ANNOTATI ON/ADDEN DUM Not Available [facility] 4 14:10:02 Problem Notes None recorded. Procedures Surgical History Date Name Laterality Status Provider Name and Address Organization Details Recorded Time 02/27/20 24 Advanced Care Planning completed Moe Dominguez MD [address], [place], [address], [facility] 01/22/2024 07:57:18 07/31/19 24 Colonoscopy completed Mona Luz [facility] 08/10/2023 08:07:26 01/03/20 23 Advanced Care Planning completed Moe Dominguez MD [address], [place], [address], [facility] 01/02/2023 08:23:41 01/06/20 22 Carpal tunnel surgery completed Betsy Moe [facility] 01/06/2022 15:07:21 11/05/19 22 Advanced Care Planning completed Moe Dominguez MD [address], [place], [address], [facility] 11/04/2021 13:34:01 01/21/20 19 Mini-Cog Test completed Laurel hallman MA [facility] 01/20/2019 13:04:41 12/03/19 19 coronary artery bypass grafts x 3 completed Lona Walker RN [facility] 12/10/2018 09:24:48 12/03/19 19 Endoscopic vein harvest completed Lona Walker RN [facility] 12/10/2018 09:25:11 09/28/19 19 catheterization completed Betsy Moe [facility] 10/01/2018 13:54:26 11/24/19 18 Mini-Cog Test completed Laurel hallman MA [facility] 11/23/2017 11:18:04 11/22/19 17 Fall Risk Assessment completed Laurel hallman MA [facility] 11/21/2016 11:10:23 11/22/19 17 Mini-Cog Test completed Laurel hallman MA [facility] 11/21/2016 11:12:27 11/17/19 16 Fall Risk Assessment completed Laurel hallman MA [facility] 01/11/2016 14:25:33 11/17/19 16 Mini-Cog Test completed Jesús Fraga MD [address], [place], [address], [facility] 11/17/2015 13:47:29 07/27/20 16 Advanced Care Planning completed Jesús Fraga MD [address], [place], [address], [facility] 11/17/2015 13:47:29 04/22/20 15 Joint Injection completed Jesús Fraga MD [address], [place], [address], [facility] 04/22/2015 11:16:35 11/07/19 15 Fall Risk Assessment completed Laurel Marquez-Favian hallman, [facility] 11/06/2014 09:10:28 11/07/19 15 Mini-Cog Test completed Laurel hallman, [facility] 11/06/2014 09:10:28 Knee arthroscopy/surger y completed Laurel hallman, [facility] 11/23/2017 11:02:07 Appendectomy completed Laurel hallman, [facility] 11/05/2013 10:57:38 Hernia Repair completed Laurel hallman, [facility] 11/05/2013 10:57:38 Cataract Surgery completed Chelo Maldonado MA [facility] 11/04/2021 12:59:46 Cataract Surgery completed Chelo Maldonado MA [facility] 11/04/2021 13:00:00 Imaging Results None recorded. Procedure Notes None recorded. Medical Equipment None Reported. Allergies Allergen ID Allergen Name Allergen Category Reaction Reaction Severity Criticality Documentation Date Start Date Code Code System Note Provider Name and Address Organization Details Recorded Time 61604 pravastat in medicatio n myalgias (muscle pain) Not available Not available 11/21/2016 02803 RxNorm Not Available [facility] 3 11:12:52 5248 Medicinal product containin g tetracycl ine structure and acting as antibacte rial agent (product) medicatio n rash Not available Not available 11/04/2013 98399 1004 SNOMED red, crack ed skin SIL Hannah [place] - [facility] 5 08:59:30 Medications Name Sig Start Date Stop Date Status Note LastModified by Organization Details LastModified Time cyclobenz aprine 10 mg tablet TAKE 1 TABLET BY MOUTH THREE TIMES A DAY DIRECTED FOR 10 DAYS 12/30 completed Not Available Not Available Not Available amoxicill in 500 mg capsule TAKE 1 TABLET THREE TIMES A DAY FOR 5 DAYS 09/08 completed Not Available Not Available Not Available furosemid e 40 mg tablet Take 1 tablet every day by oral route for 14 days. 12/24 completed Stop Dec 24, 2018 Not Available Not Available Not Available atorvasta tin 80 mg tablet TAKE 1 TABLET BY MOUTH EVERY DAY 2024 active Not Available Not Available Not Avai lable clonidine HCl 0.1 mg tablet as needed active Not Available Not Available No t Available acetamino phen 325 mg tablet Take 3 tablets every 6 hours by oral route as needed. 06/14 completed for post-op pain Not Available Not Available Not Available prednison e 10 mg tablet Take 1 tablet every day by oral route for 10 days. 12/11 completed Not Available Not Available Not Available Saline Mist 0.65 % nasal spray aerosol Take 1 spray every day by nasal route in the morning for 30 days. 02/26 completed Not Available Not Available Not Available trazodone 50 mg tablet Take 1 tablet every day by oral route for 30 days. 06/18 completed Not Available Not Available Not Available sildenafi l 50 mg tablet TAKE 1 TABLET BY MOUTH EVERY DAY NEEDED FOR 28 DAYS active Not Available Not Available No t Available atorvasta tin 10 mg tablet QD 09/27 completed RECORDED 09/28/19 10 1:52PM BY JESÚS FRAGA MD, OFFICE VISIT; Not Available Not Available Not Available aspirin 325 mg tablet Take 2 tablets every day by oral route as needed. 10/04 completed Approx 4 times per month Not Available Not Available Not Available amiodaron e 200 mg tablet Take 2 tablets twice a day by oral route for 3 days. 01/20 completed Not Available Not Available Not Available benzonata te 200 mg capsule 12/15 /2021 completed Not Available Not Available Not Available prednison e 20 mg tablet Take 2 tablets every day by oral route for 5 days. 12/11 completed Not Available Not Available Not Available fluoroura cil 5 % topical cream Apply 1 applicat ion twice a day by topical route as needed for 7 days. 11/05 completed For actinic keratosi s; Dr Aaron Reece (derm) Not Available Not Available Not Available metoprolo l succinate ER 100 mg tablet,ex tended release 24 hr TAKE 1 TABLET BY MOUTH EVERY DAY 06/14 completed Not Available Not Available Not Available simvastat in 10 mg tablet TAKE 1 TABLET BY MOUTH EVERY DAY 05/25 completed Not Available Not Available Not Available prednison e 5 mg tablet 11/05 completed Not Available Not Available Not Available Zithromax Z-Nahum 250 mg tablet QD 06/22 completed RECORDED 07/01/19 13 1:17PM BY JESÚS FRAGA MD, MEDICATI ON AUTO-BRITTNEY CTIVATIO N; Not Available Not Available Not Available triamcino lone acetonide 0.025 % lotion active Not Available Not Available Not Available Wellbutri n SR 150 mg tablet, 12 hr sustained -release BID 06/15 completed RECORDED 06/15/19 09 11:01AM BY SUSANNE TORRES AL SUMMARY; Not Available Not Available Not Available promethaz ine 6.25 mg-codein e 10 mg/5 mL syrup 04/06 completed Not Available Not Available Not Available meclizine 12.5 mg tablet Take 2 tablets 3 times a day by oral route as needed. 11/23 completed Not Available Not Available Not Available amlodipin e 2.5 mg tablet TAKE 1 TABLET BY MOUTH EVERY DAY active Not Available Not Available No t Available clopidogr el 75 mg tablet TAKE 1 TABLET BY MOUTH EVERY DAY DIRECTED 06/14 completed Not Available Not Available Not Available amlodipin e 5 mg tablet Take 1 tablet every day by oral route for 90 days. 12/11 completed Not Available Not Available Not Available aspirin 81 mg tablet,de layed release TAKE 1 TABLET BY MOUTH EVERY DAY active Not Available Not Available No t Available simvastat in 40 mg tablet Take one half tablet daily by mouth 11/23 completed Not Available Not Available Not Available ketorolac 0.5 % eye drops INSTILL 1 DROP INTO RIGHT EYE 4 TIMES A DAY 11/04 completed Not Available Not Available Not Available meloxicam 7.5 mg tablet Take 2 tablets every day by oral route for 30 days. 11/23 completed Not Available Not Available Not Available oxycodone -acetamin ophen 5 mg-325 mg tablet TAKE 1 TABLET BY MOUTH EVERY 8 HOURS NEEDED FOR PAIN 02/24 completed Not Available Not Available Not Available amoxicill in 875 mg tablet TAKE 1 TABLET BY MOUTH EVERY 12 HOURS FOR 7 DAYS 02/24 completed Not Available Not Available Not Available pravastat in 10 mg tablet DAILY active Not Available Not Available Not Available benzonata te 100 mg capsule TAKE 1 CAPSULE BY MOUTH THREE TIMES A DAY NEEDED FOR 5 DAYS 04/24 completed Not Available Not Available Not Available simvastat in 20 mg tablet TAKE 1 TABLET BY MOUTH EVERY DAY 10/04 completed Not Available Not Available Not Available Advair Diskus 250 mcg-50 mcg/dose powder for inhalatio n TWO TIMES DAILY 07/01 completed RECORDED 07/05/19 11 10:26AM BY IRMA ARENAS PA-C, MEDICATI ON AUTO-BRITTNEY CTIVATIO N;2 SAMPLES GIVEN Not Available Not Available Not Available orphenadr ine citrate ER 100 mg tablet,ex tended release Take 1 tablet twice a day by oral route for 5 days. active Not Available Not Available No t Available hydrochlo rothiazid e 12.5 mg capsule DAILY 2013 active RECORDED 09/13/19 14 4:08PM BY LAUREL JAY MA, ANNOTATI ON/ADDEN DUM; Not Available Not Available Not Available nitroglyc zeynep 0.4 mg sublingua l tablet TAKE 1 TABLET SUBLINGU ALLY EVERY 5 MINUTES NEEDED FOR CHEST PAIN,MAX 3 DOSES PER EPISODE active Not Available Not Available No t Available gabapenti n 300 mg capsule TAKE ONE CAPSULE BY MOUTH 3 TIMES A DAY DIRECTED 12/01 completed pt stopped med in August 2019 Not Available Not Available Not Available monteluka st 10 mg tablet Take 1 tablet every day by oral route at bedtime. 05/10 completed Not Available Not Available Not Available codeine 10 mg-guaife nesin 100 mg/5 mL oral liquid TAKE 10 ML EVERY DAY BY ORAL ROUTE AT BEDTIME FOR 7 DAYS. 02/24 completed Not Available Not Available Not Available pravastat in 20 mg tablet Take 1 tablet every day by oral route. 11/06 completed Not Available Not Available Not Available mupirocin 2 % topical ointment 11/01 completed Not Available Not Available Not Available mirtazapi ne 15 mg tablet TAKE 1 TABLET BY MOUTH EVERYDAY AT BEDTIME 01/20 completed Not Available Not Available Not Available methylpre dnisolone 4 mg tablets in a dose pack 6 DAYS TAPER. FOLLOW DIRECTIO NS ON PACKAGE DIRECTED 05/01 completed Not Available Not Available Not Available ketoconaz ole 2 % topical cream APPLY TWICE A DAY TO FEET FOR 2 WEEKS NEEDED FOR FOOT SCALE active NEEDED Not Available Not Available Not Available fluticaso ne propionat e 50 mcg/actua tion nasal spray,cyrus pension SPRAY 2 SPRAYS EVERY DAY INTO EACH NOSTRIL 2024 active Not Available Not Available Not Avai lable naproxen 500 mg tablet TAKE 1 TABLET BY MOUTH TWICE A DAY FOR 14 DAYS 11/01 completed Not Available Not Available Not Available amoxicill in 875 mg-potass ium clavulana te 125 mg tablet TAKE 1 TABLET BY MOUTH EVERY 12 HOURS FOR 10 DAYS 01/02 completed Not Available Not Available Not Available oxycodone 5 mg tablet Take 2 tablets every 6-8 hours by oral route. 12/11 completed Not Available Not Available Not Available escitalop enrique 10 mg tablet TAKE 1 TABLET BY MOUTH EVERY DAY active Not Available Not Available No t Available ezetimibe 10 mg tablet TAKE 1 TABLET BY MOUTH EVERY DAY active Not Available Not Available No t Available vardenafi l 5 mg tablet Take 1 tablet every day by oral route as directed for 12 days. 06/14 completed Not Available Not Available Not Available vardenafi l 10 mg tablet active Not Available Not Available Not Available bupropion HCl XL 300 mg 24 hr tablet, extended release TAKE 1 TABLET BY MOUTH DAILY DIRECTED FOR DEPRESSI ON 2024 active Not Available Not Available Not Avai lable bupropion HCl XL 150 mg 24 hr tablet, extended release TAKE 1 TABLET BY MOUTH EVERY DAY DIRECTED active Not Available Not Available No t Available tadalafil 5 mg tablet Take 1 tablet po daily 04/14 completed PRN Not Available Not Available Not Available tadalafil 20 mg tablet TAKE 1 TABLET BY MOUTH 30-60 MINUTES PRIOR TO SEX ON EMPTY STOMACH DIRECTED active Not Available Not Available No t Available mirtazapi ne 7.5 mg tablet TAKE 1 TABLET BY MOUTH EVERYDAY AT BEDTIME 02/26 completed Not Available Not Available Not Available hydrocodo ne 10 mg-acetam inophen 300 mg tablet Take 1 tablet twice a day by oral route as needed for 7 days. 09/23 completed Not Available Not Available Not Available pregabali n 75 mg capsule TAKE 1 CAPSULE BY MOUTH TWICE A DAY NEEDED FOR 30 DAYS 02/26 completed Not Available Not Available Not Available clonidine EVERY HOUR NEEDED FOR BP >150/90 09/01 completed RECORDED 09/02/19 14 11:36AM BY LAUREL JAY MA, OFFICE VISIT; Not Available Not Available Not Available Aspir-81 Take one by mouth daily 12/11 completed On plavix post-op Not Available Not Available Not Available Guiatuss EVERY 6 HOURS NEEDED FOR COUGH 06/20 completed RECORDED 06/25/19 11 9:19AM BY IRMA ARENAS PA-C, MEDICATI ON AUTO-BRITTNEY CTIVATIO N; Not Available Not Available Not Available multivita min DAILY active RECORDED 09/13/19 12 3:09PM BY JESÚS FRAGA MD, ANNOTATI ON/ADDEN DUM; Not Available Not Available Not Available blood pressure monitor DAILY MONITORI NG OF BP FOR HTN 04/03 completed RECORDED 04/11/20 11 2:08PM BY LAUREL JAY MA, MEDICATI ON AUTO-BRITTNEY CTIVATIO N; Not Available Not Available Not Available ProAir HFA 90 mcg/actua tion aerosol inhaler Inhale 2 puffs every 4 hours by inhalati on route as needed. 05/10 completed Not Available Not Available Not Available GaviLyte- G 236 gram-22.7 4 gram-6.74 gram-5.86 gram oral solution TAKE 4000 ML BY MOUTH DIRECTED 12/10 completed Not Available Not Available Not Available Metamucil Sugar-Charles e (aspartam e) 3.4 gram/5.8 gram oral powder 1/2 tsp every other day, mixed in water active Not Available Not Available No t Available melatonin 10 mg tablet Take 2 tablets as needed by oral route at bedtime. 03/06 completed Not Available Not Available Not Available Robitussi n Cough-Shawna st Sourav DM take prn 06/22 completed Not Available Not Available Not Available Flonase Sensimist 27.5 mcg/actua tion nasal spray,cyrus pension Take 2 sprays every day by nasal route at bedtime for 30 days. 09/08 completed changed to generic fluticas one Not Available Not Available Not Available EC-Naprox en 500 mg tablet,de layed release TAKE 1 TABLET BY MOUTH TWICE A DAY NEEDED 02/26 completed Not Available Not Available Not Available Paxlovid 300 mg (150 mg x 2)-100 mg tablets in a dose pack Take 3 tablets twice a day by oral route as directed for 5 days. 04/24 completed Not Available Not Available Not Available Clenpiq 10 mg-3.5 gram-12 gram/175 mL oral solution 04/14 completed Not Available Not Available Not Available Vitals Date Recorded Body height Provider Name an d Address Organization Details Last Updated DateTime 04/24/2023 172.72 cm Laurel Layc MA [facility] 04/24/2023 11:56:23 Date Recorded Body height Body mass index (BMI) Body weight Heart rate Oxygen saturation Oxygen saturation in Arterial blood by Pulse oximetry Body temperature Systolic blood pressure Diastolic blood pressure Provider Name and Address Organization Details Last Updated DateTime 172.72 cm 28.4 kg/m2 22002.7 7 g 91 /min 97 % 97 % 97.3 [degF] 120 mm[Hg] 66 mm[Hg] Javan michael MA [facility] 09:49:36 Date Recorded Body height Body mass index (BMI) Body weight Heart rate Oxygen saturation Oxygen saturation in Arterial blood by Pulse oximetry Body temperature Systolic blood pressure Diastolic blood pressure Provider Name and Address Organization Details Last Updated DateTime 4 172.72 cm 28 kg/m2 54047 g 93 /min 98 % 98 % 98 [degF] 119 mm[Hg] 76 mm[Hg] Javan michael MA [facility] 4 09:06:20 Date Recorded Body height Body mass index (BMI) Body weight Heart rate Oxygen saturation Oxygen saturation in Arterial blood by Pulse oximetry Body temperature Systolic blood pressure Diastolic blood pressure Provider Name and Address Organization Details Last Updated DateTime 4 172.72 cm 28.1 kg/m2 28440.5 9 g 100 /min 98 % 98 % 97.2 [degF] 148 mm[Hg] 74 mm[Hg] Catherine Craft MA [facility] 4 13:34:43 Date Recorded Systolic blood pressure Diastolic blood pressure Provider Name and Address Organization Details Last Updated DateTime 02/27/2024 126 mm[Hg] 64 mm[Hg] Moe Dominguez MD [address], [place], [address], [facility] 02/27/2024 14:31:47 Social History Question Answer Notes LastModified by Organizat ion Details LastModified Time Tobacco Smoking Status Never Smoker Laurel Lacy MA null, [facility] 11/05/2013 10:57:39 Do You Have An Advance Directive? Yes HCP At Home Information not available 06/01/2021 What Is Your Level Of Alcohol Consumption? Occasional Wine Information not available 11/06/2014 Is Blood Transfusion Acceptable In An Emergency? Yes Information not available 11/06/2014 What Is Your Level Of Caffeine Consumption? Moderate 2 Cups Of Coffee/mike resso Daily Information not available 11/05/2013 How Much Tobacco Do You Chew? None Information not available 11/06/2014 Are You Currently Employed? No Retired Information not available 11/06/2014 What Type Of Diet Are You Following? REGULAR Information not available 11/01/2020 Which Illicit Or Recreational Drugs Have You Used? None Information not available 11/06/2014 Do You Or Have You Ever Used E-cigarettes Or Vape? 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 With Others (Leatha) Information not available 06/01/2021 Do You Take Precautions To Prevent Distracted Driving? Yes Information not available 03/16/2015 How Often Do You Need To Have Someone Help You When You Read Instructions, Pamphlets, Or Other Written Material From Your Doctor Or Pharmacy? Never Information not available 03/16/2015 Have You Served In The ? No Information not available 05/10/2016 Have You Or Anyone In Your Household Had Any Of The Following Symptoms In The Last 14 Days: Sore Throat, Cough, Chills, Body Aches For Unknown Reasons, Shortness Of Breath For Unknown Reasons, Loss Of Smell, Loss Of Taste, Fever At Or Greater Than 100 Degrees Fahrenheit? No Information not available 11/01/2020 Are You Or Anyone In Your Household A Health Care Provider Or Emergency Responder? No Information not available 11/01/2020 To The Best Of Your Knowledge Have You Been In Close Proximity To Any Individual Who Tested Positive For COVID-19? No Information not available 11/01/2020 *AWV ONLY* Are You Presently Prescribed Opioid Medication By PCP Or Specialist? If YES -Provider Assess The Benefit For Other, Non-opioid Pain Therapies Instead, Even If The Patient Does Not Have OUD But Is Possibly At Risk. No Information not available 11/01/2020 Have You Recently Traveled To A COVID-19 High Risk Area Or Gathering In The Last 10 Days? No Information not available 11/01/2020 Marital Status Informatio n not available 06/01/2021 What Was The Date Of Your Most Recent Tobacco Screening? 02/27/2024 [email or web address] Information not available 02/27/2024 How Many Children Do You Have? 2 Information not available 11/06/2014 Do You Use Protection During Sex? No Information not available 03/16/2015 Seat Belts Used Routinely Yes Information not available 06/01/2021 Are You Sexually Active? Yes Information not available 03/16/2015 Smoke Alarm In Home Yes Information not available 06/01/2021 At What Age Did You Start Smoking Tobacco? 0 Information not available 11/06/2014 Are You Passively Exposed To Smoke? No Information not available 11/06/2014 Do You Or Have You Ever Used Smokeless Tobacco? Never Used Smokeless Tobacco Information not available 01/20/2019 How Much Tobacco Do You Smoke? No Information not available 11/06/2014 Do You Use Any Illicit Or Recreational Drugs? No Information not available 06/01/2021 Do You Use Sunscreen Routinely? Yes Information not available 11/06/2014 How Many Years Have You Smoked Tobacco? 0 Information not available 11/06/2014 Do You Or Have You Ever Used Any Other Forms Of Tobacco Or Nicotine? No Information not available 05/03/2022 Sex: Unknown Functional Status Question Answer Note LastModified by Organizat ion Details LastModified Time Are you able to walk? YESWOREST Information not available 06/01/2021 Are you able to care for yourself? Yes Information not available 11/06/2014 What is your exercise level? Moderate 1-2 x week at the gym Information not available 05/03/2022 Mental Status None recorded. Family History Relationship Description Onset Age of this Age Resolved Age Notes LastModified by Organization Details LastModified Time Mother Hypothyroidi sm phelmuth Not available 2015 13:44:59 Mother Low blood pressure phelmuth Not available 2015 13:44:59 Father Heart irregular phelmuth Not available 2015 13:44:59 Medical History Condition Response Hypertension Y Immunizations Vaccine Type Date Status Note Provider Name and Address Organization Details Recorded Time Influenza, high-dose, trivalent, PF 018 completed Mona uLz null, [facility] 03/09/2023 11:37:13 Tdap 018 completed Mona Luz null, [facility] 03/09/2023 11:37:13 Influenza, high-dose, trivalent, PF 018 completed Mona Luz null, [facility] 03/09/2023 11:37:13 Influenza, high-dose, trivalent, PF 018 completed Mona Luz null, [facility] 03/09/2023 11:37:13 Influenza, high-dose, trivalent, PF 020 completed Mona Luz null, [facility] 03/09/2023 11:37:13 COVID-19 vaccine, vector-nr, [id number], PF, 0.5 mL completed Mona Luz [facility] 03/09/2023 11:37:13 Influenza, high-dose, trivalent, PF 021 completed Mona Luz null, [facility] 03/09/2023 11:37:13 Influenza, adjuvanted, trivalent, PF 020 completed Mona Luz null, [facility] 03/09/2023 11:37:13 COVID-19, mRNA, LNP-S, PF, 100 mcg/0.5mL dose or 50 mcg/0.25mL dose 022 completed Mona Luz null, [facility] 03/09/2023 11:37:13 pneumococcal polysaccharide P[facility]23 [facility] 11:37:13 Pneumococcal conjugate PCV 13 016 completed Mona Luz null, [facility] 03/09/2023 11:37:13 Influenza, split virus, quadrivalent, PF 015 completed Mona Luz null, [facility] 03/09/2023 11:37:13 Influenza, high-dose, quadrivalent, PF 022 completed Mona Luz null, [facility] 03/09/2023 11:37:13 Influenza, high-dose, quadrivalent, PF 023 completed Mona Luz null, [facility] 03/09/2023 11:37:13 Pneumococcal conjugate PCV20, polysaccharide [id number] conjugate, adjuvant, PF 023 completed Irma Isabel MA null, [facility] 04/14/2023 09:12:51 Influenza, adjuvanted, trivalent, PF 024 completed Betsy poole, [facility] 02/11/2024 10:32:30 zoster live 017 cancelled patient objection Not Available [facility] 05/10/2019 02:21:33 zoster recombinant 018 cancelled patient objection Not Available [facility] 02/18/2021 06:19:20 Tdap 011 completed Mona poole, [facility] 03/09/2023 11:37:13 pneumococcal polysaccharide PPV23 011 completed Mona poole, [facility] 03/09/2023 11:37:13 Past Encounters Encounter ID Performer Location Encounter Start Date Encounter Closed Date Diagnosis/Indication Diagnosis SNOMED-CT Code Diagnosis ICD10 Code Diagnosis Note [id number] Jesús Fraga MD Main Office [address] [facility] [address] [facility] [place] [id number] 11/05/2013 10:24:40 11/05/2013 12:04:40 Essential hypertension 47399886 Hyperlipidemia [id number] Major depr essive disorder [id number] [facility] [address] [place] [address] 02/01/2007 00:00:00 [id number] [facility] [address] [facility] [address] [place] [address] 07/11/2007 00:00:00 [id number] auto[employer]ce [address] [facility],[address] [place] [address] 11/20/2007 00:00:00 [id number] [employer] erce [address] [facility] [address] [place] [address] 06/04/2006 00:00:00 [id number] autoEComm erce [address] [facility],[address] [place] [address] 06/01/2008 00:00:00 [id number] autoEComm erce [address] [facility],[address] [place] [address] 12/15/2008 00:00:00 [id number] autoEComm erce [address] [facility],[address] [place] [address] 01/04/2009 00:00:00 [id number] auto[employer] erce [address] [facility],[address] [place] [address] 09/21/2009 00:00:00 [id number] autoEComm erce [address] [facility],[address] [place] [address] 09/27/2009 00:00:00 [id number] [employer]ce [address] [facility],[address] [place] [address] 04/08/2010 00:00:00 [id number] autoEComm erce [address] [facility],[address] [place] [address] 06/09/2010 00:00:00 [id number] autoEComm erce [address] [facility],[address] [place] [address] 2 06/17/2010 00:00:00 [id number] autoEComm erce [address] [facility],[address] [place] [address] 2 10/11/2010 00:00:00 [id number] autoEComm erce [address] [facility],[address] [place] [address] 04/11/2011 00:00:00 [id number] autoEComm erce [address] [facility],[address] [place] [address] 2 09/13/2011 00:00:00 [id number] auto[employer] erce [address] [facility],[address] [place] [address] 02/27/2012 00:00:00 [id number] autoEComm erce [address] [facility],[address] [place] [address] 2 06/17/2012 00:00:00 [id number] autoEComm erce [address] [facility],[address] [place] [address] 2 01/20/2013 00:00:00 [id number] autoEComm erce [address] [facility],[address] [place] [address] 2 05/19/2013 00:00:00 [id number] auto[employer] erce [address] [facility],[address] [place] [address] 07/18/2013 00:00:00 [id number] auto[employer] erce [address] [facility],[address] [place] [address] 2 09/01/2013 00:00:00 [id number] Jesús Fraga MD Main Office [address] [place] [address] 01/26/2014 11:08:25 01/26/2014 12:16:34 Hyperlipidemia 66217692 Essential hypertension 55979950 [id number] Laurel mcconnell [place] Main Office [address] [place] [address] 08/14/2014 09:58:57 08/14/2014 10:49:29 Lumbar radiculopathy 787575970 3 months. gave choice of PT or seeing [facility]. He would like to start with PT and if not improving he will call to get referral to [facility]. caution drowsiness with cyclobenza harlan. he does not want to take NSAIDs [id number] Laurel mcconnell [place] Main Office [address] [place] [address] 11/06/2014 08:45:28 11/06/2014 10:02:26 Adult health examination 939425807 Cough 83568290 Essential hypertension 93670419 Hyperlipidemia 10000028 Insomnia 221796789 Varicella vaccination 00262144 Body mass index 25-29 - overweight 697636906 Spinal jordon nosis of lumbar region 52962750 Benign pro static hyperplasia with outflow obstruction 097356773 Mild BPH symptoms with 2x/night nocturia. Declines treatment. Single neto or depressive episode 929766000 [id number] Jesús Fraga MD Main Office [address] [place] [address] [place] [address] 03/02/2015 15:55:22 03/02/2015 16:08:02 Needs influenza immunization 803082548 Z23 [id number] Jesús Fraga MD Main Office [address] [place] [address] 03/16/2015 11:22:27 03/16/2015 12:16:57 Lumbar radiculopathy 446429587 M54.16 [id number] Jesús Fraga MD Main Office [address] [address] 04/22/2015 09:56:45 04/22/2015 11:17:31 Greater trochanteric pain syndrome 4252070 M70.61 [id number] Laurel mcconnell [place] Main Office [address] [address] 11/17/2015 12:57:55 11/17/2015 14:15:46 Adult health examination 406812804 Z00.00 Advance di rective discussed with patient 763045918 Z71.89 Body mass index 25-29 - overweight 234607218 Z68.29 Insomnia 590932108 G47.0 0 Major depr essive disorder 545996404 F32.9 Essential hypertension 35134344 I10 Administra tion of pneumococcal vaccine 10429790 Z23 Varicella vaccination 68 551493 Z23 Hyperlipidemia 95892289 E78.0 Bursitis of shoulder 239 819972 M75.50 [id number] Jesús Fraga MD Main Office [address] [place] [address] 01/11/2016 14:00:51 01/11/2016 15:30:16 Cough 44654138 R05 Allergic rhinitis 819113 04 J30.9 Wheezing symptom 9975734 08 R06.2 [id number] Jesús Fraga MD Main Office [address] [place] [address] [place] [address] 05/10/2016 10:22:26 05/10/2016 11:22:23 Hyperlipidemia 63434141 E78.5 Fatigue 53190952 R53.83 Allergic rhinitis 740490 04 J30.9 Major depr essive disorder 937826774 F32.9 Stable. continue bupropion Essential hypertension 97760824 I10 stable on low dose CCB Primary er ectile dysfunction 726720887 N52.9 Body mass index 25-29 - overweight 158828258 E66.3 [id number] Courtney Dudley Main Office [address] [address] [place] [address] 11/21/2016 10:52:38 11/21/2016 12:30:35 Adult health examination 752192975 Z00.00 Administra tion of pneumococcal vaccine 97572725 Z23 Varicella vaccination 68 244928 Z23 Major depr essive disorder 793837119 F32.9 Stable. continue bupropion Hyperlipidemia 62830050 E78.5 Reduced libido 8525231 R 68.82 Allergic rhinitis 771413 04 J30.9 Spinal jordon nosis of lumbar region 67898701 M48.06 Benign pro static hyperplasia with outflow obstruction 809076435 N40.1 Mild BPH symptoms with 2x/night nocturia. Declines treatment. Bursitis of shoulder 239 892046 M75.50 [id number] Jesús Fraga MD Main Office [address] [address] [place] [address] 05/25/2017 10:50:31 05/25/2017 12:16:32 Hyperlipidemia 39389527 E78.5 Single neto or depressive episode 813458011 F32.1 [id number] Ginny Carcamo Main Office [address] [address] [place] [address] 07/06/2017 15:05:55 07/06/2017 16:00:40 Direct inguinal hernia 03566902 K40.90 HPI and PE is most consistent with direct left inguinal hernia. will refer to surgery for eval and treatment . encouraged pt to stay hydrated to avoid further constipati on and avoid lifting, bending, straining with moving bowels. Pt directed to seek immediate medical attention in the even it goes from discomfort and becomes painful or becomes more protrudent . [id number] Jesús Fraga MD Main Office [address] [facility] [address] [place] [address] 11/23/2017 10:55:20 11/23/2017 12:30:02 Hepatitis C screening 707732528 Z11.59 Essential hypertension 99883180 I10 Active or passive immunization 979722968 Z23 Adult heal th examination 695973410 Z00.00 Hyperlipidemia 35490442 E78.5 Major depr essive disorder 286178876 F32.9 Stable. continue bupropion Fatigue 09064466 R53.83 Allergic rhinitis 963179 04 J30.9 Hypersomnia 91479559 G47 .10 [id number] Jesús Fraga MD Main Office [address] [place] [address] 05/06/2018 13:46:38 05/06/2018 15:36:46 Major depressive disorder 510596965 F32.9 Patient is recommende d to start psychother apy, reduce ETOH to no more than 1-2 drinks per day. Start medic. for sleep. F/u 4-6 weeks. Psychophys iologic insomnia 690321310 F51.04 will try trazodone at 50 mg daily , f/u 4-6 weeks. Alcohol dependence 70815 003 F10.20 Essential hypertension 02117920 I10 increase Amlodipine to 5 mg daily. F/u 4-6 weeks. [id number] Courtney Dudley Main Office [address] [place] [address] 06/18/2018 11:13:05 06/18/2018 12:29:57 Insomnia 976298532 G47.00 refuses to try Trazodone. Reports sleep is now improved. Major depr essive disorder 857316213 F32.9 Patient is recommende d to see psychiatri st and start therapy as discussed. Inform. given for [facility] in [place]. F/u with PCP as shceduled in June. . Essential hypertension 64843816 I10 Refuses to increase Amlodipine as was brooks loera [id number] Jesús Fraga MD Main Office [address] [place] [address] [place] [address] 06/24/2018 10:15:48 06/24/2018 11:07:56 Essential hypertension 40228153 I10 Single neto or depressive episode 500621104 F32.1 [id number] Arvin Bangura PA-C Main Office [address] [address] [place] [address] 08/21/2018 14:46:38 08/21/2018 15:30:44 Pain in right hip joint 5349761500 30730 M25.551 pt requested refill of vicodin - had leftover rx from 3 yrs ago - fully aware will take as last resort, not recreation ally will rx c meloxicam, could use prn tyl (not c vicodin) and will get updated xray and ortho eval Essential hypertension 38952765 I10 bp & cr stable, cont med as dir [id number] Gloria Bangura PA-C Main Office [address] [address] [place] [address] 09/23/2018 10:59:36 09/23/2018 12:14:52 Essential hypertension 80297052 I10 recommend to restart BP meds and take daily. Lumbago with sciatica 20 3544472 M54.41 Unclear if sciatic and sacroiliit is vs lumbar radiculiti s. Pt. has zay at [facility] in 1 week. Will start Prednisone taper as directed followed by restart of Meloxicam altern. with TYlenol for pain. LS spine xrays. [id number] Jesús Fraga MD Main Office [address] [address] [place] [address] 09/30/2018 14:00:24 09/30/2018 17:16:52 [id number] Jesús Fraga MD Main Office [address] [place] [address] [place] [address] 10/04/2018 12:59:55 10/04/2018 14:31:34 Multi vessel coronary artery disease 531728038 I25.10 Recent NSTEMI 09/2018. Seen at [facility]. Left ventr icular systolic dysfunction 949945794 I50.20 LVEF 40-45% on echo 09/2018 [id number] Jesús Fraga MD Main Office [address] [address] [place] [address] 10/16/2018 09:05:50 10/17/2018 13:12:09 [id number] Hermelinda Lima [place] Main Office [address] [place] [address] [place] [address] 10/21/2018 10:14:43 10/21/2018 11:36:46 Multi vessel coronary artery disease 085746560 I25.10 Recent NSTEMI 09/2018. Seen at [facility]. cont f/u c card - awaiting outpt. CABG Left ventr icular systolic dysfunction 778610602 I50.20 LVEF 40-45% on echo 09/2018 Benign par oxysmal positional vertigo 040993859 H81.10 better - cont f/u c vestibular therapist - next is tomorrow, use meclizine prn dc summary stated to f/u c Dr. Tong, but [facility] did not make referral - pt/ would like to go fwd c making ent referral, advised can cancel if feeling better Essential hypertension 49093799 I10 bp & cr stable, cont meds as dir Transition of care 43570 97534 105 Z75.8 [id number] Alka Ordonez Main Office [address] [address] [place] [address] 11/01/2018 09:44:09 11/01/2018 13:04:41 [id number] Jesús Fraga MD Main Office [address] [address] [place] [address] 11/05/2018 13:59:21 11/05/2018 15:11:30 Radicular syndrome of lower limbs 22622171 M54.10 Pain in hip, likely related to the back, as he has FROM of the hips and radicular pain. Will do STAT MRI of lumbar spine. Pt declines ED evaluation at this time. Will do alternatin g ibuprofen and percocet at home. low threshold to go to ED if pain not controlled or has bowel blader issue. He prefers to go home and his feels she can assist him safely. Call if any change in the interim. Rx renewed, Stop percocet and start oxycodone Spinal jordon nosis of lumbar region 97487400 M48.061 Will re evaluate with MRI History of myocardial infarction 162045771 I25.2 Pt is on medical management awaiting CABG, no cardiovasc ular sx at this time. [id number] Lona Walker RN Main Office [address] [facility] [address] [place] [address] 12/10/2018 09:28:15 12/10/2018 12:06:48 [id number] Bang Vidal Main Office [address] [address] [place] [address] 12/17/2018 13:23:28 12/17/2018 14:38:47 Multi vessel coronary artery disease 758798363 I25.10 s/p cabg x 3 - cont vna as dir, pending see card sx office tomorrow for suture removal/f/ u, pending see card next month on 01.14, pending begin cardiac rehab 01.02 no evidence of volume overload - no further post-op edema - advised pt okay to stop Fatigue 20218515 R53.83 likely d/t deconditio ej p surgery and / or anemia - see below - ? d/t mirt - see below Iron defic iency anemia 21001232 D50.9 Essential hypertension 16356296 I10 mildly orthostati c - see above - stop furosemide Insomnia 385519886 G47.0 0 better - rec cut mirt in 1/2 x 3 nights, then stop [id number] Laurel Marquez-Sil mcconnell [place] Main Office [address] [address] [place] [address] 01/09/2019 12:04:54 01/09/2019 12:16:47 [id number] Courtney Dudley Main Office [address] [address] [place] [address] 01/20/2019 12:37:42 01/20/2019 13:55:43 Adult health examination 946462959 Z00.00 History of myocardial infarction 050942536 I25.2 Essential hypertension 29587061 I10 Multi vess el coronary artery disease 681062829 I25.10 Recent NSTEMI 09/2018. Seen at [facility]. Iron defic iency anemia 43950383 D50.9 Body mass index 25-29 - overweight 632514785 E66.3 Z68.25 Moderate m ajor depression, single episode 44475267 F32.1 Stable. continue bupropion [id number] Jesús Fraga MD Main Office [address] [address] [place] [address] 11/24/2019 15:07:16 11/24/2019 16:41:00 Essential hypertension 54950961 I10 Fatigue 50069991 R53.83 Hyperlipidemia 37387091 E78.5 Multi vess el coronary artery disease 598853761 I25.10 Recent NSTEMI 09/2018. Seen at [facility]. Poor stream of urine 162 987825 R39.12 Primary er ectile dysfunction 530384948 N52.9 History of myocardial infarction 985098924 I25.2 Moderate r ecurrent major depression 33345465 F33.1 Left ventr icular systolic dysfunction 469890943 I50.20 LVEF 40-45% on echo 09/2018 [id number] Hermelinda Lima MA Main Office [address] [address] [place] [address] 06/14/2020 10:17:47 06/14/2020 11:32:13 Pain of right wrist 1512445329 94169 M25.531 Patient presented for wrist pain he notes that the wrist pain has gotten worse days will get x-ray of the wrist and also give him naproxen to be taken consecutiv sindy for 7 days, and as needed thus after. Advised to take with meals the risk of upset stomach and GI bleed was discussed, and cardiovasc ular risk of NSAID use also discussed patient is aware understand s the risk. Osteoarthr itis of wrist 926586584 M19.039 [id number] Jesús Fraga MD Main Office [address] [address] [place] [address] 11/01/2020 11:11:47 11/01/2020 12:33:49 Adult health examination 534234889 Z00.00 Essential hypertension 31297896 I10 Pain of left hand 068903 5505 95525 M79.642 Fatigue 49896711 R53.83 Hyperlipidemia 69488423 E78.5 Multi vess el coronary artery disease 032658856 I25.10 NSTEMI 09/2018 and s/p CABG History of myocardial infarction 111255568 I25.2 Moderate r ecurrent major depression 08146729 F33.1 Greater tr ochanteric pain syndrome 5089852 M70.61 Hypersomnia 70702696 G47 .10 [id number] Courtney Dudley Main Office [address] [facility] [address] [facility] [place] [address] 04/06/2021 10:54:16 04/06/2021 11:59:39 Left ventricular systolic dysfunction 160339842 I50.20 follows cardiology yearly. Essential hypertension 98033045 I10 Low sodium diet discussedC ounseled on medication adherence, cw current regimen as BP controlled .Counseled on diet/exerc ise Exposure t o viral disease 7297782912 02998 Z03.818 Will test for covid, give 1 dose J&J and has sx that can be due to virus. Upper resp iratory infection 55169604 J06.9 Throat Lozenges,s alt water gargle,sean quate hydration enforced,s simeon sprays,hum idifier use enforced.t demond sent for cough, and advised honey.Flu test done, covid test ordered.As Perry is high risk advise if difficulty breathing high fever then go to hospital. Alcohol dependence 06305 003 F10.20 Was under a lot of stress with mother notes he does not have an issue with etoh. He told me he saw my collegue at one visit and was talking about his stress stating she's going to drive me to drink But he denies excess etoh inake as the words used was just an expression .CAGE Score 0In a week drinks 7 drinks in week.Never more than 6 drinks one setting.Se e AUDIT C screening. Counseling 661520729 Z71 .9 Referral for counseling with Pedro / MELISA Marmolejo. Please provide patient with contact info to schedule their appointmen malini Shea# email: [email or web address] Moderate r ecurrent major depression 58314011 F33.1 No SI ideation, referral to [facility] provided. [id number] Moe Dominguez MD Main Office [address] [facility] [address] [place] [address] 06/01/2021 12:55:21 06/01/2021 13:44:11 Alcohol dependence 04397706 F10.20 Was under a lot of stress with mother notes he does not have an issue with etoh. He told me he saw my collegue at one visit and was talking about his stress stating she's going to drive me to drink But he denies excess etoh inake as the words used was just an expression .CAGE Score 0In a week drinks 7 drinks in week.Never more than 6 drinks one setting.Se e AUDIT C screening. Moderate r ecurrent major depression 65786295 F33.1 No SI ideation, Had some visit for [facility]. Needs new therapist. Left ventr icular systolic dysfunction 316422230 I50.20 follows cardiology yearly.Nex t apt Jun 16. At [facility] ed risk for falls 559631181 Z91.81 No gait abnormalit y on exam, has hx of BPPV, No tremors on exam.Has not falling to physically hurt himself but is unsteady.W ill refer to PT for fall prevention . Primary er ectile dysfunction 764954149 N52.9 Risk discussed with regards to viagra and CAD. Impingemen t syndrome of left shoulder region 5482978679 91134 M75.42 Suspected shoulder impingemen t. Offered Analgesic with PO steroid but Perry wants to hold and try therapy.Wi ll get Xr to ensure no instabilit y.Conserva tive therapy discussed. [id number] Moe Dominguez MD Main Office [address] [place] [address] 06/22/2021 15:08:38 06/22/2021 16:31:00 Pre-surgery evaluation 615533734 Z01.818 1. Pre-Surgic al Evaluation /Surgical Clearance for right cataracts surgery scheduled for 06/29/21 under [facility].-- Clinical cardiac predictor( s): hypertensi on, CAD status post CABG-- Surgical risk level: Low-- Functional Status: EXCELLENT- - Revised Cardiac Risk Index (RCRI) for Pre-Operat eryn Risk: 1-- READ Score: 0.1 % Risk of myocardial infarction or cardiac arrest, intraopera tively or up to 30 days post-op-- Vitals and previous labs reviewed-- Imaging: Not indicated- - EKG: Done at cardiology office 06/16/21-- Labs ordered per ophthalmol ogy recs.-- Informed patient NPO at midnight-- Advised to avoid NSAIDS however given medical history of coronary artery disease with CABG I recommend the patient to continue with aspirin as benefits outweigh the risk. I advised him to check with his ophthalmol ogist if this will be an issue. Given the low risk nature of the procedure via laser surgery I doubt it would be a problem.-- Plan of care discussed with patient.-- Medical clearance: Stable to proceed for procedure. Patient is at low risk for cardiopulm onary complicati ons with planned procedure based on comorbidit ies, good exertional tolerance and overall procedure risk. Cataract 823030159 H26.9 [id number] Moe Dominguez MD Main Office [address] [facility] [address] [place] [address] 11/04/2021 12:48:21 11/04/2021 13:43:46 Adult health examination 797147226 Z00.00 Patient was counseled on healthy diet, exercise and nutrition due to Body mass index is 28.8 kg/m? ? ?. Last PSADate: 10/28/20Resu lt: 1.4Plan: past age for screening, no fhx, asymptomat ic. Last Colonoscop y:Date: 04/10/12Re sult: wnlPlan: Per GI repeat 10yrs pt, reminded. Vaccines:T dAP: 11/03/17Zos ter Rec:PCV13: 11/17/15PPS V23: 04/11/11, 11/21/16Infl uenza: 03/23/21Cov id: 08/01/20, 05/12/21 Routine labs reviewed Immunizati on status reviewed. Will screen based on risk factors. Regular dental and ophtho care advised as well as seat belt and sunscreen use. Distracted driving discussed. Medication reconciled . Advance directives discussed. Varicella vaccination 68 926574 Z23 Screening for malignant neoplasm of colon 943420783 Z12.11 Advance di rective discussed with patient 530485210 Z71.89 MOLST discussed. [id number] Moe Dominguez MD Main Office [address] [facility] [address] [place] [address] 02/24/2022 14:09:01 02/24/2022 14:51:19 Bursitis of shoulder 586202437 M75.50 Impingemen t syndrome of right shoulder region 4629254926 50997 M75.41 [id number] Moe Dominguez MD Main Office [address] [facility] [address] [place] [address] 05/03/2022 10:45:57 05/03/2022 11:42:09 Essential hypertension 56909664 I10 Low sodium diet discussedC ounseled on medication adherence, cw current regimen as BP controlled .Counseled on diet/exerc ise Left ventr icular systolic dysfunction 894996609 I50.20 follows cardiology yearly. Is seeing counseling . Moderate r ecurrent major depression 60810821 F33.1 No SI Ideation Multi vess el coronary artery disease 902403386 I25.10 stable and doing well. [id number] Alka Ordonez Main Office [address] [facility] [address] [place] [address] 09/08/2022 11:22:58 09/08/2022 12:50:13 Persistent cough 108328739 R05.3 possible pneumonia vs bronchitis . Will do cxr now and call in augmentin to start empiricall y. Rest, hydration is important to sip on fluids, call if not improving ED if any acute changes Vasovagal symptom 225971 009 R55 Pt came around within 10 minutes, able to drink fluids, walk to car, no vomiting, not dizzy on discharge. Called later and he was feeling ok Community acquired pneumonia 844551033 J18.9 Pt with hx CAD but no sx related to this today. No acute sx of HF, no leg edema but feeling fatigued. Lab results and xray show no CHF, bronchitis /pneumonia likely. Will start treatment now. [id number] Courtney Dudley Main Office [address] [facility] [address] [place] [address] 01/02/2023 11:07:22 01/02/2023 12:20:44 Adult health examination 579514915 Z00.00 Patient was counseled on healthy diet, exercise and nutrition due to Body mass index is 28.8 kg/m? ? ?. Last PSADate: 10/28/20Resu lt: 1.4Plan: past age for screening, no fhx, asymptomat ic. Last Colonoscop y:Date: 04/10/12Re sult: wnlPlan: Per GI repeat 10yrs pt, reminded he is due and needs to schedule again. Vaccines:T dAP: 11/03/17Zos ter Rec: declined understand s risk.PCV20 : script [id number] : 11/17/15PPS V23: 04/11/11, 11/21/16Infl uenza: yearly flu shot encouraged .Covid: 08/01/20, 05/12/21, encouraged to complete series. Routine labs reviewed Immunizati on status reviewed. Will screen based on risk factors. Regular dental and ophtho care advised as well as seat belt and sunscreen use. Distracted driving discussed. Medication reconciled . Advance directives discussed. Screening for malignant neoplasm of colon 348061999 Z12.11 Advance di rective discussed with patient 650255216 Z71.89 MOLST discussed. Administra tion of pneumococcal vaccine 02477048 Z23 Fatigue 78197112 R53.83 Z00.00 Hyperlipidemia 82597864 E78.5 Z00.00 Prediabetes 719649161 R7 3.03 Essential hypertension 65158381 I10 Low sodium diet discussedC ounseled on medication adherence, cw current regimen as BP controlled .Counseled on diet/exerc ise Costal chondritis 848124 04 M94.0 pain on palpation. Declined analgesic. Varicella vaccination 68 192132 Z23 [id number] Moe Dominguez MD Main Office [address] [facility] [address] [facility] [place] [address] 03/06/2023 15:39:35 03/07/2023 09:04:34 Insomnia 252594996 G47.00 Melatonin 15mg and gabpentin 300 did not work well for him.Will try remeron to see if it aids in sleep.Will monitor lipid and a1c after ~6 weeks on medicaiton , side affects discussed. Moderate r ecurrent major depression 77578976 F33.1 No SI Ideation, seeing a therapist which as helped also on bupropion with good. [id number] Chris Rubi MD Main Office [address] [facility] [address] [facility] [place] [address] 04/14/2023 08:57:25 04/14/2023 09:53:49 COVID-19 [id number] U07.1 Based on duration of symptoms and comorbidit ies pt is a candidate for antiviral therapy. Common/ser ious potential side effects discussed. Advised to call if noted. Current isolation guidelines based on immunizati on status discussed as well as isolation if rebound infection occurs. Medication s reviewed and dosing adjusted (hold atorvastat in/sildena jeff and monitor BP) as indicated with Paxlovid. Cough [id number] R05.9 [id number] Moe Dominguez MD Main Office [address] [facility] [address] [facility] [place] [phone] 04/24/2023 11:49:37 04/24/2023 12:32:42 Insomnia [id number] G47.00 Melatonin 15mg and gabpentin 300 did not work well for him.Drew been on remeron notes some improvemen t, thus will continue at current dose, advised to check lipids and a1c. Moderate r ecurrent major depression [id number] F33.1 Follows therapist which as helped also on bupropion which aids.No SI ideation. [id number] PERLA Patel Main Office [address] [facility] [address] [place] [phone] 12/11/2023 09:39:51 12/11/2023 10:18:11 Allergic rhinitis [id number] J30.9 refill provided Spinal jordon nosis of lumbar region 00438225 M48.061 Lumbar radiculopathy 128 578585 M54.16 left sided, MRI with L3-L4 nerve root impingemen t in 2019. Sx typically go away with symptomati c treatment. Will rx naproxen BID x 10-14 days wit food, cyclobenza harlan TID as needed- no driving alcohol or work with med, heat 20 mins at a time 3-4 times daily. may us muscle rub, massage gun gentle stretching as tolerated. [id number] Courtney Dudley Main Office [address] [facility] [address] [place] [address] 12/31/2023 08:54:40 12/31/2023 09:42:42 Unsteady when walking [id number] R26.89 At [facility] ed risk for falls [id number] Z91.81 Lumbar radiculopathy 128 971111 M54.16 Trigger fi nger of left hand [id number] M65.332 [id number] Moe Dominguez MD Main Office [address] [facility] [address] [facility] [place] [phone] 02/27/2024 13:28:39 02/27/2024 14:30:39 Adult health examination [id number] Z00.00 Patient was counseled on healthy diet, exercise and nutrition due to Body mass index is 28.1 kg/m? ? ?. Last PSADate: 10/28/20Resu lt: 1.4Plan: past age for screening, no fhx, asymptomat ic. Last Colonoscop y:Date: 07/31/23Resu lt: tubular adenomaPla n: Per GI repeat 5 yrs Vaccines:T dAP: 11/03/17Zos ter Rec: declined understand s risk.PCV13 : 11/17/15PPS V23: 04/11/11, 11/21/16PCV2 0: 03/07/23In fluenza: 02/09/24Co vid: encourage update vaccineRSV : Script given. Routine labs reviewed Immunizati on status reviewed. Will screen based on risk factors. Regular dental and ophtho care advised as well as seat belt and sunscreen use. Distracted driving discussed. Medication reconciled . Advance directives discussed. Fatigue 71691035 R53.83 Z00.00 Prediabetes 170223384 R7 3.03 Essential hypertension 12442786 I10 Low sodium diet discussedC ounseled on medication adherence, cw current regimen as BP controlled .Counseled on diet/exerc ise Advance di rective discussed with patient [id number] Z71.89 MOLST discussed he will change some things.HCP stands as Gopi. Hyperlipidemia 01541497 E78.5 Z00.00 Health Concerns Section Related Observation LastModified by Organization Detai ls LastModified Time None Recorded Concern Status LastModified by Organization Details LastModified Time None Recorded Advance Directives Directive Y: HCP at home Payers Encounter Date Sequence Insurance Name Policy Number Policy Allison Covered Member ID Allison Member ID Guarantor Name 04/14/2023 1 [place]: [employer] Perry Castro [id number] Perry Castro 04/14/2023 2 COMMONWEALTH INDEMNITY PLAN - UNICARE [id number] Leatha L Okowitz [id number] Perry Vasquez Okowitz 04/24/2023 1 [place] [employer] Perry Hurtowitz [id number] Perry Vasquez Okowitz 04/24/2023 2 COMMONWEALTH INDEMNITY PLAN - UNICARE [id number] Leatha L Okowitz [id number] Perry Vasquez Okowitz 12/11/2023 1 MEDICARE [place]: [employer] Perry Vasquez Okowitz [id number] Perry Vasquez Okowitz 12/11/2023 2 COMMONWEALTH INDEMNITY PLAN - UNICARE [id number] Leatha L Okowitz [id number] Perry Vasquez Okowitz 12/31/2023 1 [place] [employer] Perry Hurtowitz [id number] Perry Vasquez Okowitz 12/31/2023 2 COMMONWEALTH INDEMNITY PLAN - UNIC[employer] [id number] Leatha L Okowitz [id number] Perry Vasquez Okowitz 02/27/2024 1 MEDICARE B-[place]: [employer] Perry Hurtowitz [id number] Perry Vasquez Okowitz 02/27/2024 2 COMMONWEALTH INDEMNITY PLAN - UNICARE [id number] Leatha L Okowitz [id number] Perry Vasquez Gloria Notes Date Note Type Note Provider Name and Address Organization Details Recorded Time 04/14/2023 text/html COVID-19 Symptom s August 2019Reported bypatient.Contacts and Exposureclose contact with a confirmed or suspected case of COVID-19 Quality:dry cough Duration:symptoms lasting 2 days Onset/Timing:date of symptoms onset: (04/12)Notes:Tested positive yesterday, symptoms started 2 days ago. Not sure he wants paxlovid, more something for cough. Has only had primary vaccine series. Chris Rubi MD [address] [place] [address], [phone], [facility] 04/14/2023 09:36:06 04/24/2023 text/html Psych Medication ManagementReported bypatient.Medications:t aking medications as directed; no side effects from medication Associated Symptoms:no motor disturbancesNotes:Recen t covid illness which has made him feel down but generally feels well. Notes he is recovering and is hopeful.No concerns for thought of self harm or harming others.Sleep ProblemsReported bypatient.General Sleep:no sleep apnea; not sleepy during the day (daytime somnolence); no snoring;insomnia: awakening in the middle of the night Severity:does not interfere with daily activities; no drowsiness while driving Quality:no loud snoring; no gasping for air; no hyponasal speech; no frequent breathing through the mouth Location of sleep apnea:no nasal passage blockage; no throat pain; no feeling of tightness in throat; no dryness of mouth; no chest congestion Prescribed sleep medications:currently taking medication to help sleep(melatonin) Associated Symptoms:hypertension;h eart diseaseNotes:Tolerating remeron with some relief in sleep.Has a hx of sarah seen by sleep medicine 11/04/21 could not tolerate cpap. Follow up after initiaing remeron for sleep and mental health. Moe Dominguez MD [address], [phone], [facility] 04/24/2023 12:16:57 12/11/2023 text/html Generic HPI TemplateReported bypatient.Notes:Present s fro 2 weeks of back pin, worked in the yard and is unsure what triggered sx, was sore and used heating pad.taking ASA 4/ day and it was helping.Then helped his neighbor off the floor- 5 days ago and that aggravated sx, now ASA/ muscle rub not helping, has been taking ibuprofen for a couple days 400mg BID and 200mg at bedtime- takes the edge off but not helping.Pain is now radiating down the left leg, used massage gunPain is right in the left glute. Has not had pain in the left before. MRI 2019 multilevel degenerative changes, disc bulges, central canal stenosis and impingement of L3-L4 nerve roots. PERLA Patel [address] [address], [place], [phone], [facility] 12/11/2023 10:34:29 12/31/2023 text/html The patient is a 73-year-old male who presents with his due to complaints of progressive unsteadiness on his feet over the past few months. His , who made the appointment without his knowledge, is concerned about his increased risk of falling. He reports that the onset of unsteadiness worsened with the initiation of Flexeril (cyclobenzaprine) by our ZAY, which he has been taking at a dosage of 10 mg TID. Despite the unsteadiness, he has not experienced any falls to date; however, he did trip earlier. He denies any recent changes in his overall health status but notes that the unsteadiness has worsened since starting Flexeril. His memory remains unchanged, and he denies any symptoms of light headedness, dizziness, blurred vision, or weakness. He experiences sciatica symptoms extending from his buttocks to his knees. He maintains good hydration and nutrition, denies numbness or tingling in his feet, and reports no issues with hearing. He uses reading glasses for close vision. Additionally, he denies headaches, palpitations, pain in the legs, and his weight has remained stable. Courtney poole, [facility] 01/09/2024 12:09:58 02/27/2024 text/html Medicare Annual Wellness VisitReported bypatient.Diet and Nutrition:healthy diet Fracture Risk:no recent explained fracture Physical Activity:exercises on a regular basis Depression Risk:See phq Concentration and Memory:no memory lapses or loss Speech/Motor difficulties:no speech difficulties Hearing:no loss of hearing Vision:no vision problems Activities of Daily Living:able to bathe with limited or no assistance; able to contol urination and bowels; able to dress with limited or no assistance; able to feed self with limited or no assistance; able to get out of chair or bed with limited or no assistance; able to groom with limited or no assistance; able to toilet with limited or no assistance Instrumental Activities of Daily Living:able to do house work with limited or no assistance; able to grocery shop with limited or no assistance; able to manage medications with limited or no assistance; able to manage money with limited or no assistance; able to prepare meals with limited or no assistance; able to use the phone with limited or no assistance Falls Risk Assessment:no fall in the past year Home Safety:reviewed sun protection; no unsafe stairs; working smoke/CO detectors; use of seatbelts; good lighting in the home;fire arms(advised to lock up.) Here for physical exam visit. Reviewed chronic medications and existing medical conditions. Discussed age-appropriate screening guidelines as well as goals for fitness and weight management. Moe Dominguez MD [address], [phone], [facility] 02/27/2024 14:32:22
== END 2024-07-28 13:40 | disposition home or self-care (01) ==
LOC: HO.HCS 12:47
PROVIDERS: Visit Provider Internal Medicine Cardiovascular Disease
DX: I25.10 Atherosclerotic heart disease of native coronary artery without angina pectoris (principal); I10 Essential (primary) hypertension
CPT/HCPCS: 93010; 99214; G2211

== ENCOUNTER → 2024-07-28 12:46 | Outpatient (BNVA) | payer MEDICARE, OTHER, SELFPAY | PROVIDERS: Visit Provider Internal Medicine Cardiovascular Disease | DX: I25.10 Atherosclerotic heart disease of native coronary artery without angina pectoris (principal); I10 Essential (primary) hypertension | CPT/HCPCS: 93005; 99212 ==